=== PATIENT | female | born 1940 | race Caucasian/White ===

== ENCOUNTER 2017-07-19 11:56 | Inpatient (IN) | payer OTHER, MEDICARE, MEDICAID ==
[2017-07-19] VITALS (10 sets, daily range): BP systolic 122–163; BP diastolic 58–82; PULSE 54–66; RESP 17–20; TEMP 98.2–98.7; O2SAT 93–99
[~2017-07-19] VITALS: Ht 157.5 cm; Wt 77.5 kg
--- NOTE | 2017-07-19 12:04 | PD ---
Physical Exam Date Seen by Provider: Jul 19, 2017 Time Seen by Provider: 12:02 Narrative 77 yo female here for chest pain and SOB. History of cardiac. Patient unclear of it however. Feeling nauseous. Pain to the chest on/off. No fevers. No injuries. Vitals are stable in triage. Awaiting bed placement. Data Data Last Documented VS Vital Signs Date Time Temp Pulse Resp B/P (MAP) Pulse Ox O2 Delivery O2 Flow Rate FiO2 07/19/17 11:58 98.7 66 18 122/73 (89) 99 MDM Medical Record Reviewed: Yes Supervised Visit with VICKIE: No Travis June Jul 19, 2017 12:03
--- NOTE | 2017-07-19 12:29 | PD ---
HPI Chief Complaint: Chest Pain Time Seen by Provider: 12:12 Travel History International Travel<30 days: No Contact w/Intl Traveler<30days: No Traveled to known affect area: No History of Present Illness HPI 77-year-old female presents to the emergency department for evaluation of chest pain. Patient states she has been having intermittent chest pain for several months. However, it was slightly worse today. She also reports shortness of breath that is also been ongoing. The patient apparently had a syncopal episode on June. She was seen at [facility] and saw a lending activities supervisor, Dr. Cyr. A cardiac catheterization was performed on Friday, July 14, 2017. Patient states that she was told there was something wrong with a valve, but does not know the official report. She's is on Plavix and also takes a baby aspirin at night. However, she is not sure why she is on the Plavix. She denies any recent single episodes, but does endorse dizziness. She states she will fill if she is going to pass out, but does not pass out. No abdominal pain. No fevers or chills. Patient denies any history of OR or stents. PFSH Past Medical History Hx Anticoagulant Therapy: Yes Cardiovascular Problems: Yes Chemotherapy: Yes (right breast ca) Social History Alcohol Use: No Tobacco Use: No Substance Use: No Allergies-Medications (Allergen,Severity, Reaction): Coded Allergies: No Known Allergies (Unverified , 07/19/17) Reported Meds & Prescriptions Reported Meds & Active Scripts Active Reported Oxycodone-Acetaminophen 5-325 mg Tab 1 Tab PO Q8HR PRN Gabapentin 800 Mg Tab 800 Mg PO TID Aspirin 81 Mg Chew 81 Mg CHEW DAILY Metoprolol Succinate ER 24 HR (Metoprolol Succinate) 50 Mg Tab 50 Mg PO DAILY Sertraline (Sertraline HCl) 50 Mg Tab 50 Mg PO DAILY Levothyroxine (Levothyroxine Sodium) 100 Mcg Tab 100 Mcg PO DAILY Baclofen 10 Mg Tab 10 Mg PO TID Simvastatin 20 Mg Tab 20 Mg PO DAILY Carbidopa-Levodopa 25-100 Mg Tab 1 Tab PO Q8HR Clopidogrel (Clopidogrel Bisulfate) 75 Mg Tab 75 Mg PO DAILY Review of Systems Except as stated in HPI: all other systems reviewed are Neg Physical Exam Narrative GENERAL: Well-nourished, well-developed female patient, ambulatory. Afebrile. SKIN: Focused skin assessment warm/dry. HEAD: Normocephalic. Atraumatic. EYES: No scleral icterus. No injection or drainage. NECK: Supple, trachea midline. No JVD or lymphadenopathy. CARDIOVASCULAR: Regular rate and rhythm without gallops, or rubs. Patient has systolic murmur noted. RESPIRATORY: Breath sounds equal bilaterally. No accessory muscle use. Lungs sounds are clear to auscultation. GASTROINTESTINAL: Abdomen soft, non-tender, nondistended. MUSCULOSKELETAL: No cyanosis, or edema. BACK: Nontender without obvious deformity. No CVA tenderness. Data Data Last Documented VS Vital Signs Date Time Temp Pulse Resp B/P (MAP) Pulse Ox O2 Delivery O2 Flow Rate FiO2 07/19/17 12:06 72 93 Nasal Cannula 2.00 07/19/17 11:58 98.7 18 122/73 (89) Orders Orders Electrocardiogram (07/19/17 12:22) Basic Metabolic Panel (Bmp) (07/19/17 12:22) Ckmb (Isoenzyme) Profile (07/19/17 12:22) Complete Blood Count With Diff (07/19/17 12:22) Magnesium (Mg) (07/19/17 12:22) Prothrombin Time / Inr (Pt) (07/19/17 12:22) Act Partial Throm Time (Ptt) (07/19/17 12:22) Troponin I (07/19/17 12:22) Chest, Single Ap (07/19/17 12:22) Ecg Monitoring (07/19/17 12:22) Iv Access Insert/Monitor (07/19/17 12:22) Oximetry (07/19/17 12:22) Oxygen Administration (07/19/17 12:22) Aspirin Chew (Aspirin Chew) (07/19/17 12:30) MDM Medical Decision Making Medical Screen Exam Complete: Yes Emergency Medical Condition: Yes Medical Record Reviewed: Yes Interpretation(s) Last Impressions Chest X-Ray 07/19/17 1222 Signed Impressions: Service Date/Time: Monday, July 19, 2017 12:33 - CONCLUSION: No acute disease. Cory Dela Cruz MD FACR Differential Diagnosis ACS versus Chest wall pain versus pneumonia versus pneumothorax versus ACS versus chronic chest pain Narrative Course 77-year-old female presents to the emergency department for shortness of breath and chest pain. She does state the symptoms have been ongoing for several months. She was recently seen at [facility] and had a cardiac catheterization done. I will obtain these records. She states that her lending activities supervisor is Dr. Aguilar that he is familiar with her. EKG, CBC, BMP, CK, troponin, magnesium, PTT, PT/INR, chest x-ray ordered and pending. EKG shows sinus rhythm, heart rate 60, no acute ST changes. Patient is given aspirin 162 mg by mouth. CBC shows no acute abnormality. BMP is unremarkable. CK is 40. Troponin is 0.02. Magnesium is 2.1. Coags show no acute abnormality. Chest x-ray shows no acute disease. I was able to obtain the cardiac catheter report from [facility]. This was completed on July 14, 2017. It showed normal left ventricular global systolic function, normal left heart hemodynamics, mild pulmonary hypertension, critical aortic stenosis, no angiographically apparent epicardial disease. I discussed results with the patient. On exam, her heart rate is now bradycardic, going down to 49. She is on metoprolol 50 mg daily. The patient states her lending activities supervisor is now Dr. Aguilar who is familiar with her. I will attempt to contact him for further direction. I talked to Dr. Aguilar who recommends admission. Consult is placed for him. Dr. Flynn, hospitalist, accepted admission. Diagnosis Primary Impression: Aortic stenosis Qualified Codes: I35.0 - Nonrheumatic aortic (valve) stenosis Additional Impression: Chest pain Qualified Codes: R07.9 - Chest pain, unspecified Admitting Information Admitting Physician Requests: Admit Raiza hSah Jul 19, 2017 12:29
[2017-07-19] MEDS ORDERED: ASPIRIN 81 MG CHEW TAB CHEW ONE (12:30)
--- NOTE | 2017-07-19 13:11 | RADRPT ---
EXAM DATE/TIME: 07/19/2017 12:33 [facility] COMPARISON: No previous studies available for comparison. INDICATIONS : Chest pain and short of breath since this morning. MEDICAL HISTORY : None. SURGICAL HISTORY : None. ENCOUNTER: Initial ACUITY: 1 day PAIN SCORE: 2/10 LOCATION: Bilateral chest FINDINGS: A single view of the chest demonstrates the lungs to be symmetrically aerated without evidence of mas s, infiltrate or effusion. The cardiomediastinal contours are unremarkable. Surgical clips right ax illa. Osseous structures are intact. CONCLUSION: No acute disease. Cory Dela Cruz MD FACR on July 19, 2017 at 13:08 Board Certified Radiologist. This report was verified electronically.
[2017-07-19 13:50] LABS: AUTOMATED NEUTROPHIL # 6.1 TH/MM3 (1.8-7.7); BASOPHIL # 0.1 TH/MM3 (0-0.2); BASOPHIL % 0.6 % (0.0-2.0); EOSINOPHIL # 0.1 TH/MM3 (0-0.4); EOSINOPHIL % 1.6 % (0.0-4.0); HEMATOCRIT 34.6 % (35.0-46.0); HEMO FLAGS DIFF FINAL; LYMPH % 19.5 % (9.0-44.0); LYMPHOCYTE # 1.7 TH/MM3 (1.0-4.8); MEAN CELL VOLUME 88.2 FL (80.0-100.0); MEAN CORPUSCULAR HEMOGLOBIN 29.1 PG (27.0-34.0); MONO % 9.2 % (0.0-8.0); NEUT % 69.1 % (16.0-70.0); PLATELET COUNT 271 TH/MM3 (150-450); RED BLOOD COUNT 3.93 MIL/MM3 (4.00-5.30); RED CELL DISTRIBUTION WIDTH 14.4 % (11.6-17.2); WHITE BLOOD COUNT 8.8 TH/MM3 (4.0-11.0)
[2017-07-19 13:54] LABS: APTT (PATIENT) 32.2 SEC (24.3-30.1); PROTHROMBIN TIME - PATIENT 11.4 SEC (9.8-11.6)
[2017-07-19 13:58] LABS: BICARBONATE 29.7 MEQ/L (21.0-32.0); MAGNESIUM 2.1 MG/DL (1.5-2.5)
[2017-07-19] MEDS ORDERED: SIMV20TA PO (14:27)
[2017-07-19] MEDS ORDERED: ASPI81CH CHEW (14:27)
[2017-07-19] MEDS ORDERED: SERT-132 PO (14:27)
[2017-07-19] MEDS ORDERED: CARB25TA9 PO (14:27)
[2017-07-19] MEDS ORDERED: CLOP75TA PO (14:27)
[2017-07-19] MEDS ORDERED: OXYC1TAB63 PO (14:27)
[2017-07-19] MEDS ORDERED: BACL10TA PO (14:27)
[2017-07-19] MEDS ORDERED: METO50TA11 PO (14:27)
[2017-07-19] MEDS ORDERED: LEVO100T5 PO (14:27)
[2017-07-19] MEDS ORDERED: GABA800T PO (14:27)
--- NOTE | 2017-07-19 17:27 | RADRPT ---
EXAM DATE/TIME: 07/19/2017 17:06 [facility] COMPARISON: No previous studies available for comparison. INDICATIONS : Chest pain and short of breath. Pre op mitral valve replacement. Evaluate for pneumonia, pneumothorax , or any communicable disease. MEDICAL HISTORY : None. SURGICAL HISTORY : None. ENCOUNTER: Initial ACUITY: 1 day PAIN SCORE: 5/10 LOCATION: Bilateral chest FINDINGS: PA and lateral views of the chest demonstrate the lungs to be symmetrically aerated without evidence of mass, infiltrate or effusion. The cardiomediastinal contours are unremarkable. Surgical clips ri ght axilla. Degenerative changes right shoulder. CONCLUSION: Negative for acute disease. Degenerative changes right shoulder. Cory Dela Cruz MD FACR on July 19, 2017 at 17:25 Board Certified Radiologist. This report was verified electronically.
[2017-07-19] MEDS ORDERED: SENNOSIDES 8.6 MG TAB PO PRN (17:30)
[2017-07-19] MEDS ORDERED: LACTULOSE SYRUP 20 GM/30 ML CUP PO PRN (17:30)
[2017-07-19] MEDS ORDERED: BISACODYL 10 MG SUPP RECTAL PRN (17:30)
[2017-07-19] MEDS ORDERED: PROCHLORPERAZINE 25 MG SUPP RECTAL PRN (17:30)
[2017-07-19] MEDS ORDERED: ONDANSETRON HCL 4 MG/2 ML VIAL IVP PRN (17:30)
[2017-07-19] MEDS ORDERED: MORPHINE SULFATE 4 MG/ML INJ IV PRN ×2 (17:30)
[2017-07-19] MEDS ORDERED: MAGNESIUM HYDROXIDE SUSP 30 ML CUP PO PRN (17:30)
[2017-07-19] MEDS ORDERED: ZOLPIDEM TARTRATE 5 MG TAB PO PRN (17:30)
[2017-07-19] MEDS ORDERED: SODIUM CHLORIDE 0.9% FLUSH 10 ML FLUSH IV FLUSH PRN (17:30)
[2017-07-19] MEDS ORDERED: NALOXONE HCL 0.4 MG/ML AMP IV PRN (17:30)
[2017-07-19] MEDS ORDERED: ACETAMINOPHEN 325 MG TAB PO PRN ×2 (17:30)
[2017-07-19 17:37] LABS: BACTERIA, URINE FEW /hpf; BLOOD, URINE NEG (NEG); GLUCOSE,URINE NEG (NEG); KETONE, URINE NEG (NEG); MUCUS URINE FEW /lpf (OCC); NITRITE,URINE NEG (NEG); PH, URINE 5.5 (5.0-8.5); SQUAMOUS EPITHELIAL CELL URINE <1 /hpf (0-5); URINE COLOR YELLOW (YELLW/STRAW)
[2017-07-19 17:38] LABS: COMMENT (UR) CULTURE INDICATED; CULTURE IF INDICATED CULTURE INDICATED
--- NOTE | 2017-07-19 18:01 | RADRPT ---
EXAM DATE/TIME: 07/19/2017 17:08 [facility] COMPARISON: No previous studies available for comparison. INDICATIONS : Pre procedure TAVR. MEDICAL HISTORY : Hypercholesterolemia. Hypertension. Hypothyroidism. Cardiac disorders. Anticoagulant therapy. Chemoth erapy. Right breast cancer. SURGICAL HISTORY : Appendectomy. Right lumpectomy. ENCOUNTER: Initial ACUITY: 1 day PAIN SCORE: 0/10 LOCATION: Bilateral neck PEAK SYSTOLIC VELOCITIES (cm/sec): ICA/CCA RATIO: Right: 1.3 Left: 2.0 ICA: Right: 112.1 Left: 137.7 CCA: Right: 83.8 Left: 70.0 ECA: Right: 82.5 Left: 86.8 VERTEBRAL: Right: 49.1 antegrade Left: 42.7 antegrade Elevated flow velocities and ICA/CCA ratios have been found to correlate with increased degrees of vessel stenosis, calculated as percentage of diameter relative to a normal segment of distal ICA/CCA FINDINGS: RIGHT CAROTID: No significant stenosis is visualized. The waveforms are within normal limits. LEFT CAROTID: There is mild elevation of ratios with normal velocity in the left common carotid. VERTEBRAL ARTERIES: Antegrade flow is seen in both vertebral arteries. MISCELLANEOUS: None. CONCLUSION: Mildly elevated ratio on the left. Velocity is normal. Further evaluation may be of benefit. Cory Dela Cruz MD FACR on July 19, 2017 at 17:58 Board Certified Radiologist. This report was verified electronically.
[2017-07-19] MEDS: ENOXAPARIN SODIUM 40 MG/0.4 ML SYRINGE SQ SCH (18:44)
[2017-07-19] MEDS: GABAPENTIN 400 MG CAP PO SCH (18:44)
[2017-07-19] MEDS: BACLOFEN 10 MG TAB PO SCH (18:44)
--- NOTE | 2017-07-19 19:16 | MH ---
cc: SANIA GALINDO DATE OF ADMISSION 07/19/[address] Lucian Castillo CONSULTING PHYSICIANS Dr. Aguilar and Dr. Valiente HISTORY OF THE PRESENT ILLNESS The patient came in through the emergency department. The patient is a 77-year-old female here for chest pain, shortness breath. Has a history of cardiac issues. The patient unclear of it, however. She is nauseated. Has had some pain in the chest on and off. No fevers. No injury. The patient had chest pain. The patient is a 77-year-old female presented to the emergency department for evaluation of chest pain. States that she has been having intermittent chest pain for several months, however, it was worse today. She also reports shortness of breath that has been ongoing. The patient apparently had a syncopal episode on June, seen at [facility]. Saw a asset recovery specialist Dr. Cyr, cardiac catheterization was performed on Friday July 14, 2017. States she was told that there is something wrong with the valve, does not know the official report. She is on Plavix and also takes baby aspirin at night, not sure why she is on the Plavix. She denies any recent episodes. Has some dizziness. She feels that she is going to pass out but does not pass out. Denies any abdominal pain, fever or chills. The patient denies any history of AL or stents. The patient is known to have aortic stenosis from the cardiac catheterization. That was reviewed. PAST MEDICAL HISTORY Includes: 1. Chronic anticoagulation issues. 2. History of cardiovascular problems. 3. History of right breast cancer. 4. Has a history of cardiac disorders. 5. History of chronic anticoagulation with aspirin and Plavix. 6. History of hypercholesterolemia. 7. History of hypertension. 8. History of appendectomy. 9. History of hypothyroidism. 10. History of tobacco abuse still smoking. 11. History of chemotherapy on the right breast. 12. History of lumpectomy. 13. The patient's home medications include Baclofen. Has chronic pain and fibromyalgia. 14. Also has hypertension. 15. And hyperlipidemia. 16. History of depression. 17. And chronic pain syndrome. 18. As well as fibromyalgia. 19. What sounds like Parkinson's disease. 20. Hypothyroidism. MEDICATIONS The patient's home medications include: 21. Baclofen 10 mg t.i.d. 22. Plavix 75 mg daily. 23. Simvastatin 20 mg daily. 24. Metoprolol succinate 50 mg daily. 25. Aspirin 81 mg daily. 26. Oxycodone / Acetaminophen and 5/325 one p.o. q.8h p.r.n. pain. 27. Gabapentin 800 mg p.o. t.i.d. 28. Sertraline 50 mg p.o. daily. 29. Carbidopa-levodopa 25/100 p.o. q.8 h. 30. Levothyroxine 100 mcg one p.o. daily. SOCIAL HISTORY Smokes about half a pack per day. Denies any substance abuse or illicits. ALLERGIES NO KNOWN DRUG ALLERGIES. REVIEW OF SYSTEMS Has had some nausea and vomiting. Denies any fevers or chills or dysuria, urgency, frequency, hematuria, hematemesis, hematochezia. Denies any seizures or strokes. Denies any chest pain or palpitations. Has hypothyroidism. Has chest pain and palpitations. Has recently had a cardiac catheterization which showed aortic stenosis. Aortic issues. Does not fit sepsis. On review of systems has had fatigue. Denies any fever or weight gain or weight loss. Denies any chills. Has had some dizziness. Denies any change in her appetite. Denies any abnormal menstrual pattern. Denies any heat or cold intolerance. Denies any polydipsia, polyuria, polyphagia. Denies any blurred vision or diplopia or eye inflammation or eye pain or visual loss or photosensitivity. Denies any tinnitus or hearing loss. Denies any vertigo. Denies any nasal discharge. No oral lesions or throat pain or hoarseness or ear pain. No runny nose or . Denies any cough or snoring or wheezing. Has had some shortness of breath. Denies any hemoptysis, sputum production but still smoking. Has had the chest pain. Denies any palpitation. Has had near-syncopal type episodes. Has had some question dyspnea on exertion and paroxysmal nocturnal dyspnea. Denies any edema. Denies any abdominal pain or black, bloody stools or constipation, diarrhea. Has had some nausea and some vomiting but none recently. Denies any abnormal vaginal bleeding, dysmenorrhea, dyspareunia, sexual dysfunction. Has had joint pain and chronic pain. Has chronic muscle aches and stiffness and joint swelling and back pain. Denies any abnormal pigmentation, pruritus or rash. Denies any bruising, lymphedema. Denies any eczema or urticaria. Denies any abnormal gait, headaches or localized weakness or paresthesias. Has some anxiety. And some depression. ALLERGIES No KNOWN DRUG ALLERGIES. MEDICATIONS Home medications were as stated. FAMILY HISTORY Includes tobacco abuse. Has had as stated the cardiac disorder with aortic stenosis. History of anticoagulation therapy on aspirin and Plavix. History of hypercholesterolemia on a statin. Hypertension on metoprolol. History of appendectomy. History of hypothyroidism on Synthroid. History of tobacco abuse. Recommend smoking cessation. History of chemotherapy for right breast cancer. History of lumpectomy. PHYSICAL EXAMINATION GENERAL: On physical exam she is awake, alert and oriented, talkative and cooperative. VITAL SIGNS: Her temperature is 98.3, pulse is 60, respirations 18, blood pressure 134/58, O2 sat is 98% on 2 liters. HEENT: Her head is normocephalic, atraumatic. Pupils equal, round, reactive to light and accommodation. Extraocular muscles intact. Mucosa moist. Oropharynx is clear. Tongue is midline. NECK: There is no JVD, no thyromegaly. No carotid bruits. CARDIOVASCULAR: Heart is regular rate and rhythm. There is an S1-S2. No S3 or S4. There is a 3/6 systolic ejection murmur. LUNGS: Essentially clear to auscultation bilaterally. No rhonchi, wheezes or rales. ABDOMEN: Soft, nontender, nondistended. Positive bowel sounds. No rebound, rigidity. EXTREMITIES: No clubbing or cyanosis or edema. Good pedal pulses bilaterally. Deep tendon reflexes 2-4 upper and lower extremities bilaterally. Cranial nerves II-XII are grossly intact. SKIN: Warm and dry. No obvious rashes. NEUROLOGIC: Motor and sensory grossly within normal limits. Motor strength is 5/5 in upper and lower extremities bilaterally. Normal speech. Has fibromyalgia and chronic pain. PSYCHIATRIC: Insight and judgment is good. Mood and behavior is appropriate. LABORATORY DATA Includes the following. Had a white blood cell of 8.8, hemoglobin is 11.4, hematocrit 34.6, platelet count is 271. Coagulation had a PT of 11.4, INR is 1.0, PTT is 32.2. Her sodium is 141, potassium is 4.0, chloride is 104, carbon dioxide 29.7, anion gap 7, BUN is 10, creatinine 0.75, estimated GFR is 75, random glucose 86, calcium was 8.6, magnesium 2.1. Total creatinine kinase is 48. Troponin 0.02. Albumin is 3.1. Her EKG shows sinus rhythm, left ventricular hypertrophy and ST-T wave changes. Abnormal EKG at 60 beats per minute. IMAGING The patient has had imaging done which showed a chest x-ray negative for acute disease, degenerative changes right shoulder. Had the repeat chest x-ray which showed no acute disease. Has been seen by myself as well as by the emergency room physician. Had a cardiac catheterization report from [facility]. Showed normal left ventricular global systolic function. Normal left heart hemodynamics. Mild pulmonary hypertension. Critical aortic stenosis. No angiographically apparent epicardial disease. Croze Machine Operator is now Dr. Aguilar. Dr. Aguilar wanted the patient admitted. Regarding the aortic stenosis. And possible need for a TAVR. Chest pain. The patient also has the history of the Parkinson's disease. Chronic pain and fibromyalgia. Hyperlipidemia. Hypertension. With some mild bradycardia due to metoprolol. Chronic anticoagulation with aspirin and Plavix. Chronic pain on oxycodone and acetaminophen. Gabapentin for neuropathy and fibromyalgia. Sertraline for anxiety, depression. Carbidopa-levodopa for Parkinson's. Levothyroxine for hypothyroidism. The patient will be followed. Will undergo workup regarding need for TAVR versus a full aortic valve repair. Dr. Valiente has been consulted as well as Dr. Aguilar. The patient will continue on heparin subcu t.i.d. Continue SCDs and NACHO hose. Is a full code. Will be here at least 3 days in the hospital and maybe longer, is here as a full admission. And will be followed throughout the admission. Orders have been placed. She will be admitted. Cardiology has been consulted. We will consult case management. And cardiology and cardiothoracic surgery. Continue on heart healthy diet. Continue on oxygen. Get a CBC, CMP, TSH, free T4, hemoglobin A1c, mag and phos. MRSA PCR surveillance. Continue on troponins and cardiac enzymes. Get a urinalysis with culture and sensitivity. Continue on her home medications. Morphine as needed. Continue on Lovenox 40 mg subcu daily instead of heparin. Continue on the urine culture. Activity as tolerated. NACHO hose and SCDs. A CTA of the transaortic valve will be done and ultrasound of carotids have been ordered. OT and physical therapy and occupational therapy with a full code. We will consult case management. Continue on oxygen and PFTs have been ordered. The patient will be followed throughout the admission for any other issues that may arise. A.m. labs will be followed. For any other information please see the chart. DO CHRISTIANO Fuentes/KK /5:28 PM /6:28 PM
[2017-07-19] MEDS ORDERED: IOHEXOL 350 MG/ML 10 ML VIAL (for RAD DIAG) IVCONTRAST ONE (20:54)
[2017-07-19] MEDS: SODIUM CHLORIDE 0.9% FLUSH 10 ML FLUSH IV FLUSH SCH (21:00)
[2017-07-19] MEDS: CARBIDOPA/LEVODOPA 25 MG/100 MG TAB PO SCH (22:20)
[2017-07-19] MEDS: DOCUSATE SODIUM 50 MG/SENNA 8.6 MG TAB PO SCH (22:20)
[2017-07-20] VITALS (25 sets, daily range): BP systolic 111–160; BP diastolic 54–84; PULSE 44–66; RESP 16–20; TEMP 97.3–98.5; O2SAT 92–96
[2017-07-20 00:30] LABS: ANION GAP 7 MEQ/L (5-15); AST (GOT) 13 U/L (15-37); BICARBONATE 29.9 MEQ/L (21.0-32.0); BLOOD UREA NITROGEN 10 MG/DL (7-18); CHLORIDE 103 MEQ/L (98-107); GLOMERULAR FILTRATION RATE 81 ML/MIN (>89); MAGNESIUM 1.9 MG/DL (1.5-2.5); POTASSIUM 3.8 MEQ/L (3.5-5.1); SODIUM (NA) 140 MEQ/L (136-145)
[2017-07-20 00:40] LABS: ALKALINE PHOSPHATASE 67 U/L (45-117); ALT (GPT) 9 U/L (10-53); CREATINE KINASE 47 U/L (26-192); FREE T4 1.09 NG/DL (0.76-1.46); TOTAL BILIRUBIN ADULT 0.5 MG/DL (0.2-1.0)
[2017-07-20] MEDS: LEVOTHYROXINE SODIUM 100 MCG TAB PO SCH (05:30)
[2017-07-20] MEDS: CARBIDOPA/LEVODOPA 25 MG/100 MG TAB PO SCH ×3 (05:30→22:14)
[2017-07-20 07:11] LABS: AUTOMATED NEUTROPHIL # 4.3 TH/MM3 (1.8-7.7); BASOPHIL # 0.1 TH/MM3 (0-0.2); BASOPHIL % 0.8 % (0.0-2.0); EOSINOPHIL # 0.2 TH/MM3 (0-0.4); EOSINOPHIL % 2.9 % (0.0-4.0); HEMATOCRIT 36.3 % (35.0-46.0); HEMO FLAGS DIFF FINAL; LYMPH % 25.5 % (9.0-44.0); LYMPHOCYTE # 1.8 TH/MM3 (1.0-4.8); MEAN CELL VOLUME 87.3 FL (80.0-100.0); MEAN CORPUSCULAR HEMOGLOBIN 29.2 PG (27.0-34.0); MEAN CORPUSCULAR HGB CONC 33.4 % (32.0-36.0); MONO % 9.8 % (0.0-8.0); PLATELET COUNT 278 TH/MM3 (150-450); RED BLOOD COUNT 4.16 MIL/MM3 (4.00-5.30); RED CELL DISTRIBUTION WIDTH 14.6 % (11.6-17.2); WHITE BLOOD COUNT 7.1 TH/MM3 (4.0-11.0)
--- NOTE | 2017-07-20 07:58 | RADRPT ---
EXAM DATE/TIME: 07/19/2017 18:26 [facility] COMPARISON: No previous studies available for comparison. INDICATIONS : Post operative, TAVR or AVR. IV CONTRAST: 100 cc Omnipaque 350 (iohexol) IV RADIATION DOSE: 11.88 CTDIvol (mGy) MEDICAL HISTORY : Carcinoma, breast. Hypertension. SURGICAL HISTORY : Appendectomy. Lumpectomy. ENCOUNTER: Initial ACUITY: 1 day PAIN SCALE: 2/10 LOCATION: Bilateral chest TECHNIQUE: Volumetric scanning was performed using a multi-row detector CT scanner. The data was post processed with a variety of visualization algorithms including full volume maximum intensity projection, multi -planar sliding thin slab reformation, curved planar reformation, and surface rendering techniques. Using automated exposure control and adjustment of the mA and/or kV according to patient size, radiat ion dose was kept as low as reasonably achievable to obtain optimal diagnostic quality images. DIC OM format image data is available electronically for review and comparison. FINDINGS: CARDIAC: The coronary system is right dominant. Scattered coronary artery atherosclerotic calcifications obse rved. There is no pericardial effusion AORTIC ROOT/VALVE: 3 cusps are evident with prominent calcifications. The sinus of Valsalva measures 2.9 cm in diameter in the sinotubular junction 2.1 cm. Mid tubular thoracic aorta measures 2.9 cm with no calcifications. THORACIC AORTA: Origin of the great vessels is normal. No evidence of aneurysm, mural thrombus, dissection, mural ca lcification, or stenosis. ABDOMINAL AORTA: Diffuse calcified and noncalcified atheromatous plaque throughout the abdominal aorta but most abunda nt within the infrarenal aspect. There is an irregular luminal contour. No aneurysmal change or hemod ynamically significant stenosis. Inflow vessels are patent bilaterally. 2 renal arteries supply the r ight kidney. A single supplies the left. These are patent. The celiac, SMA, and JIN are patent. CELIAC ARTERY: Celiac artery is widely patent. SMA: Superior mesenteric artery is widely patent. RIGHT RENAL ARTERY: 2 renal arteries supply the right kidney. These are patent. LEFT RENAL ARTERY: Left renal artery is widely patent. RIGHT COMMON ILIAC: No evidence of aneurysm, mural thrombus, dissection, mural calcification, or stenosis. The common fe moral measures 6 mm. LEFT COMMON ILIAC: No evidence of aneurysm, mural thrombus, dissection, mural calcification, or stenosis. The common fe moral measures 5 mm. THORAX: A 4 mm pulmonary nodule seen within the lateral basilar segment of the right lower lobe. No dominant mass or acute infiltrate. ABDOMEN: The gallbladder is surgically absent. The liver is diffusely low in attenuation. Diffuse colonic dive rticulosis most abundant within the sigmoid. No acute inflammation. PELVIS: Within the right groin there is a 3.0 x 2.3 cm soft tissue structure that lies directly anterior to t he junction of the external iliac artery and common femoral artery. This is essentially at the origin of the inferior epigastric artery. Hounsfield units are 57. It has hazy margination. CONCLUSION: 1. Atherosclerotic disease throughout the aorta generating an irregular luminal contour within the in frarenal extent. No aneurysmal change. 2. Special note is made of a 3.0 x 2.3 cm soft tissue structure anterior to the junction of the exter nal iliac artery and common femoral artery on the right. CT characteristics would suggest a hematoma. This can be followed with ultrasound. 3. Hepatic steatosis. 4. Colonic diverticulosis. 5. 4 mm nodule within the right lower lobe. Current guidelines suggest a repeat CT of the thorax in 1 2 months. Khoi Vidal Jr., MD on July 20, 2017 at 7:44 Board Certified Radiologist. This report was verified electronically.
[2017-07-20] MEDS: oxyCODONE/ACETAMINOPHEN 5 MG/325 MG TAB PO PRN ×2 (08:42→22:14)
[2017-07-20] MEDS: PRAVASTATIN SOD 40 MG TAB PO SCH (08:43)
[2017-07-20] MEDS: GABAPENTIN 400 MG CAP PO SCH ×3 (08:43→17:31)
[2017-07-20] MEDS: CLOPIDOGREL 75 MG TAB PO SCH (08:43)
[2017-07-20] MEDS: BACLOFEN 10 MG TAB PO SCH ×3 (08:45→17:31)
[2017-07-20] MEDS: ASPIRIN 81 MG CHEW TAB CHEW SCH (08:45)
[2017-07-20] MEDS: SODIUM CHLORIDE 0.9% FLUSH 10 ML FLUSH IV FLUSH SCH ×2 (08:46→12:13)
[2017-07-20] MEDS: SERTRALINE HCL 50 MG TAB PO SCH (08:55)
[2017-07-20] MEDS: DOCUSATE SODIUM 50 MG/SENNA 8.6 MG TAB PO SCH ×2 (08:56→21:00)
[2017-07-20] MEDS ORDERED: METOPROLOL SUCCINATE 50 MG EXTENDED RELEASE TAB PO SCH (09:00)
--- NOTE | 2017-07-20 14:51 | PD.CAR.PN ---
CVT Progress Note Subjective/Hospital Course: pt seen and evaluated , sts data discussed with pt risk of mortality 3.208% morbidity mortality 19.953% Objective: Vital Signs Date Time Temp Pulse Resp B/P (MAP) Pulse Ox O2 Delivery O2 Flow Rate FiO2 07/20/17 14:04 54 07/20/17 13:40 16 07/20/17 13:08 56 07/20/17 12:31 58 07/20/17 11:30 56 07/20/17 11:30 98.0 60 16 138/71 (93) 96 07/20/17 10:00 58 07/20/17 09:00 66 07/20/17 08:00 60 07/20/17 07:30 98.5 63 16 156/84 (108) 92 07/20/17 07:00 56 07/20/17 06:05 58 07/20/17 05:05 46 07/20/17 04:23 55 07/20/17 03:39 98.3 56 19 149/78 (101) 94 07/20/17 03:39 47 07/20/17 02:20 55 07/20/17 01:03 60 07/20/17 00:15 62 07/19/17 23:50 98.4 63 18 125/60 (81) 93 07/19/17 23:00 56 07/19/17 22:00 54 07/19/17 21:00 62 07/19/17 20:00 58 07/19/17 19:20 98.2 58 17 163/82 (109) 94 07/19/17 19:15 07/19/17 18:47 62 18 136/63 (87) 95 Room Air Labs: Laboratory Tests Test 07/20/17 06:42 07/20/17 07:00 White Blood Count 7.1 TH/MM3 (4.0-11.0) Red Blood Count 4.16 MIL/MM3 (4.00-5.30) Hemoglobin 12.1 GM/DL (11.6-15.3) Hematocrit 36.3 % (35.0-46.0) Mean Corpuscular Volume 87.3 FL (80.0-100.0) Mean Corpuscular Hemoglobin 29.2 PG (27.0-34.0) Mean Corpuscular Hemoglobin Concent 33.4 % (32.0-36.0) Red Cell Distribution Width 14.6 % (11.6-17.2) Platelet Count 278 TH/MM3 (150-450) Mean Platelet Volume 7.7 FL (7.0-11.0) Neutrophils (%) (Auto) 61.0 % (16.0-70.0) Lymphocytes (%) (Auto) 25.5 % (9.0-44.0) Monocytes (%) (Auto) 9.8 % (0.0-8.0) Eosinophils (%) (Auto) 2.9 % (0.0-4.0) Basophils (%) (Auto) 0.8 % (0.0-2.0) Neutrophils # (Auto) 4.3 TH/MM3 (1.8-7.7) Lymphocytes # (Auto) 1.8 TH/MM3 (1.0-4.8) Monocytes # (Auto) 0.7 TH/MM3 (0-0.9) Eosinophils # (Auto) 0.2 TH/MM3 (0-0.4) Basophils # (Auto) 0.1 TH/MM3 (0-0.2) CBC Comment DIFF FINAL Differential Comment Nasal Screen MRSA (PCR) MRSA NOT DETECTED (NOT Result Diagram: 07/20/17 0642 07/19/17 5900 Shelly Aguillon Jul 20, 2017 14:51
--- NOTE | 2017-07-20 16:24 | ECHRPT ---
Indication: sob CONCLUSIONS Technically difficult study. The left ventricular systolic function is low normal with an estimated ejection fraction in the rang e of 50- 55%. Moderately dilated left ventricle. Wall thickness is measured at the upper limits of normal. Doppler parameters are consistent with impaired left ventricular relaxtion (grade 1 diastolic dysfun ction). Mild mitral valve regurgitation. No mitral valve stenosis. Mild thickening of the aortic valve leaflets. Diffuse calcification of the aortic valve. Mild aortic valve regurgitation. Aortic valve mean gradient is 60 mmHg. Max gradient is 97mmhg Aortic valve area is 0.51 cm. There is mild tricuspid valve regurgitation. The estimated pulmonary arterial pressure is _25_ mmHg. The pulmonary valve is not well visualized. BP: / HR: Rhythm: MEASUREMENTS (Male / Female) Normal Values Technical Quality:Technically difficult study 2D ECHO LV Diastolic Diameter PLAX 4.5 cm 4.2 - 5.9 / 3.9 - 5.3 cm LV Systolic Diameter PLAX 3.6 cm IVS Diastolic Thickness 1.7 cm 0.6 - 1.0 / 0.6 - 0.9 cm LVPW Diastolic Thickness 1.1 cm 0.6 - 1.0 / 0.6 - 0.9 cm LV Relative Wall Thickness 0.6 RV Internal Dim ED PLAX 3.0 cm LVOT Diameter 2.3 cm M-MODE Aortic Root Diameter MM 3.6 cm LA Systolic Diameter MM 3.8 cm LA Ao Ratio MM 1.1 DOPPLER AV Peak Velocity 491.5 cm/s AV Peak Gradient 96.6 mmHg AV Mean Gradient 60.0 mmHg AV Velocity Time Integral 128.5 cm LVOT Peak Velocity 54.9 cm/s LVOT Peak Gradient 1.2 mmHg LVOT Velocity Time Integral 15.9 cm AV Area Cont Eq vti 0.5 cm AV Area Cont Eq pk 0.5 cm Mitral E Point Velocity 56.3 cm/s Mitral A Point Velocity 70.1 cm/s Mitral E to A Ratio 0.8 LV E' Lateral Velocity 7.5 cm/s Mitral E to LV E' Lateral Ratio 7.5 LV E' Septal Velocity 8.3 cm/s Mitral E to LV E' Septal Ratio 6.8 TR Peak Velocity 250.0 cm/s TR Peak Gradient 25.0 mmHg FINDINGS LEFT VENTRICLE The left ventricular systolic function is low normal with an estimated ejection fraction in the rang e of 50- 55%. Moderately dilated left ventricle. Wall thickness is measured at the upper limits of normal. Doppler parameters are consistent with impaired left ventricular relaxtion (grade 1 diastolic dysfun ction). RIGHT VENTRICLE Normal right ventricular size and systolic function. LEFT ATRIUM The left atrial size is normal. RIGHT ATRIUM The right atrial size is normal. ATRIAL SEPTUM Normal atrial septal thickness without atrial level shunting by limited color doppler interrogation. AORTA The aortic root and proximal ascending aorta are normal in size on limited imaging. MITRAL VALVE Structurally normal mitral valve. Mild mitral valve regurgitation. No mitral valve stenosis. AORTIC VALVE Trileaflet aortic valve. Mild thickening of the aortic valve leaflets. Diffuse calcification of the aortic valve. Mild aortic valve regurgitation. Aortic valve mean gradient is 60 mmHg. Max gradient is 97mmhg Aortic valve area is 0.51 cm. TRICUSPID VALVE Structurally normal tricuspid valve. There is mild tricuspid valve regurgitation. The estimated pulmonary arterial pressure is _25_ mmHg. PULMONARY VALVE The pulmonary valve is not well visualized. VESSELS The inferior vena cava is normal in size. PERICARDIUM No pericardial effusion. Leandro Dillon MD, FACC (Electronically Signed) Final Date:20 July 2017 16:24 Amended: 20 July 2017 18:02
[2017-07-20 16:48] LABS: HEMOGLOBIN A1a 0.9 %; HEMOGLOBIN A1b 1.1 %; HEMOGLOBIN F 0.9 %; HEMOGLOBIN LA1C 1.5 %; HEMOGLOBIN P3 3.5 %
[2017-07-20] MEDS: ENOXAPARIN SODIUM 40 MG/0.4 ML SYRINGE SQ SCH (17:30)
--- NOTE | 2017-07-20 17:36 | EKG ---
Date Performed: 07/19/2017 Time Performed: 12:15:19 PTAGE: 77 years EKG: Sinus rhythm LEFT VENTRICULAR HYPERTROPHY AND ST-T CHANGE ABNORMAL ECG NO PREVIOUS TRACING DOCTOR: Geovany Zarco Interpretating Date/Time 07/20/2017 17:33:55
--- NOTE | 2017-07-20 18:04 | HHI.PR ---
Subjective Remarks Deferred entry - patient seen at 7 pm Patient states sob is improving denies cp vital signs stable good oxygen saturation Objective Vitals Vital Signs Date Time Temp Pulse Resp B/P (MAP) Pulse Ox O2 Delivery O2 Flow Rate FiO2 07/20/17 18:01 53 07/20/17 17:23 55 07/20/17 16:34 46 07/20/17 15:35 55 07/20/17 15:35 97.3 55 16 111/54 (73) 96 07/20/17 14:04 54 07/20/17 13:40 16 07/20/17 13:08 56 07/20/17 12:31 58 07/20/17 11:30 56 07/20/17 11:30 98.0 60 16 138/71 (93) 96 07/20/17 10:00 58 07/20/17 09:00 66 07/20/17 08:00 60 07/20/17 07:30 98.5 63 16 156/84 (108) 92 07/20/17 07:00 56 07/20/17 06:05 58 07/20/17 05:05 46 07/20/17 04:23 55 07/20/17 03:39 98.3 56 19 149/78 (101) 94 07/20/17 03:39 47 07/20/17 02:20 55 07/20/17 01:03 60 07/20/17 00:15 62 07/19/17 23:50 98.4 63 18 125/60 (81) 93 07/19/17 23:00 56 07/19/17 22:00 54 07/19/17 21:00 62 07/19/17 20:00 58 07/19/17 19:20 98.2 58 17 163/82 (109) 94 07/19/17 19:15 07/19/17 18:47 62 18 136/63 (87) 95 Room Air I/O 07/19/17 07/19/17 07/19/17 07/20/17 07/20/17 07/20/17 06:59 14:59 22:59 06:59 14:59 22:59 Intake Total 480 ml 450 ml Output Total 625 ml 700 ml Balance -145 ml -250 ml Intake Oral 480 ml 450 ml Output Urine Total 625 ml 700 ml # Voids 1 # Bowel Movements 1 Result Diagram: 07/20/17 0642 07/19/17 2300 Imaging Last Impressions Chest X-Ray 07/19/17 1222 Signed Impressions: Service Date/Time: Wednesday, July 19, 2017 12:33 - CONCLUSION: No acute disease. Cory Dela Cruz MD FACR Chest CTA 07/19/17 0000 Signed Impressions: Service Date/Time: Wednesday, July 19, 2017 18:26 - CONCLUSION: 1. Atherosclerotic disease throughout the aorta generating an irregular luminal contour within the infrarenal extent. No aneurysmal change. 2. Special note is made of a 3.0 x 2.3 cm soft tissue structure anterior to the junction of the external iliac artery and common femoral artery on the right. CT characteristics would suggest a hematoma. This can be followed with ultrasound. 3. Hepatic steatosis. 4. Colonic diverticulosis. 5. 4 mm nodule within the right lower lobe. Current guidelines suggest a repeat CT of the thorax in 12 months. Khoi Vidal Jr., MD Carotid Artery Ultrasound 07/19/17 0000 Signed Impressions: Service Date/Time: Wednesday, July 19, 2017 17:08 - CONCLUSION: Mildly elevated ratio on the left. Velocity is normal. Further evaluation may be of benefit. Cory Dela Cruz MD FACR Objective Remarks AAOx3 NAD Bilateral crackles on both lung bases on auscultation Holosystolic murmur best on the 2ng right intercostal space radiating to the neck no edema in lower extremities Medications and IVs Current Medications Medications (Trade) Dose Ordered Sig/Nazario Route Start Time Stop Time Status Last Admin (Aspirin Chew) 81 mg DAILY CHEW 07/20/17 09:00 07/20/17 08:45 (Lioresal) 10 mg TID PO 07/19/17 18:00 07/20/17 17:31 (Sinemet 25-100 Mg) 1 tab Q8HR PO 07/19/17 22:00 07/20/17 13:41 (Plavix) 75 mg DAILY PO 07/20/17 09:00 07/20/17 08:43 (Neurontin) 800 mg TID PO 07/19/17 18:00 07/20/17 17:31 (Synthroid) 100 mcg DAILY@0600 PO 07/20/17 06:00 07/20/17 05:30 (Percocet 5-325 Mg) 1 tab Q8H PRN PO 07/19/17 17:30 07/20/17 08:42 (Zoloft) 50 mg DAILY PO 07/20/17 09:00 07/20/17 08:55 (Pravachol) 40 mg DAILY PO 07/20/17 09:00 07/20/17 08:43 (NS Flush) 2 ml UNSCH PRN IV FLUSH 07/19/17 17:30 (NS Flush) 2 ml BID IV FLUSH 07/19/17 21:00 07/20/17 12:13 (Tylenol) 650 mg Q4H PRN PO 07/19/17 17:30 (Zofran Inj) 4 mg Q6H PRN IVP 07/19/17 17:30 (Compazine Supp) 25 mg Q12H PRN RECTAL 07/19/17 17:30 (Ambien) 5 mg HS PRN PO 07/19/17 17:30 (Lovenox Inj) 40 mg Q24H SQ 07/19/17 18:00 07/20/17 17:30 (Tylenol) 650 mg Q6H PRN PO 07/19/17 17:30 (Morphine Inj) 2 mg Q3H PRN IV 07/19/17 17:30 07/20/17 12:13 (Morphine Inj) 4 mg Q3H PRN IV 07/19/17 17:30 (Narcan Inj) 0.4 mg UNSCH PRN IV 07/19/17 17:30 (Brittany-Colace) 1 tab BID PO 07/19/17 21:00 07/19/17 22:20 (Milk Of Magnesia Liq) 30 ml Q12H PRN PO 07/19/17 17:30 (Senokot) 17.2 mg Q12H PRN PO 07/19/17 17:30 (Dulcolax Supp) 10 mg DAILY PRN RECTAL 07/19/17 17:30 (Lactulose Liq) 30 ml DAILY PRN PO 07/19/17 17:30 (Toprol Xl) 25 mg DAILY PO 07/21/17 09:00 A/P Problem List: (1) Critical aortic valve stenosis ICD Code: I35.0 - Nonrheumatic aortic (valve) stenosis Status: Acute Plan: Patient hemodynamically stable at this moment. Echo as described above confirms severe aortic stenosis and normal ef with grade [address] Cardiology and CT surgery consulted. Patient to get evaluated by Ct surgery for TAVR vs AVR (2) Chest pain ICD Code: R07.9 - Chest pain, unspecified Status: Acute Plan: Chest pain likely due to demand ischemia due to severe aortic stenosis. Cardiac enzymes negative x 3. EKG reviewed by me showed extensive ST - T changes due to myocardial ischemia but no ST elevation. Continue ASA and Plavix for now. (3) Acute on chronic diastolic heart failure ICD Code: I50.33 - Acute on chronic diastolic (congestive) heart failure Status: Acute Plan: Mild crackles on exam. Avoid overdiuresis unless necessary due to dependence on preload. Also avoid nitrates if chest pain. (4) HTN (hypertension) ICD Code: I10 - Essential (primary) hypertension Status: Chronic Plan: Seems to be stable. Agree with discontinuation of beta kaushik due to bradycardia. (5) Hyperlipidemia ICD Code: E78.5 - Hyperlipidemia, unspecified Plan: Continue statin therapy. (6) Fibromyalgia ICD Code: M79.7 - Fibromyalgia Status: Chronic Plan: Seems stable. Continue gabapentin and Baclofen. (7) Chronic pain syndrome ICD Code: G89.4 - Chronic pain syndrome Status: Chronic Plan: Seems to be stable. Continue Tylenol and Percocet for pain. (8) Neuropathy ICD Code: G62.9 - Polyneuropathy, unspecified Plan: Stable, continue gabapentin. (9) Hypothyroidism ICD Code: E03.9 - Hypothyroidism, unspecified Status: Chronic Plan: On Levothyroxine. Continue. tSH and free t4 normal. (10) Depression ICD Code: F32.9 - Major depressive disorder, single episode, unspecified Status: Chronic Plan: Continue Zoloft. Stable. (11) Parkinsons disease ICD Code: G20 - Parkinson's disease Plan: Seems to be stable. Continue Carbidopa levodopa. Assessment and Plan DVT Prophylaxis: on SCD's, started on Lovenox however will DC given that patient is on ASA and Plavix. Problem Qualifiers (1) Chest pain: Qualified Codes: R07.9 - Chest pain, unspecified (2) HTN (hypertension): Qualified Codes: I10 - Essential (primary) hypertension (3) Hyperlipidemia: Qualified Codes: E78.5 - Hyperlipidemia, unspecified (4) Hypothyroidism: Qualified Codes: E03.9 - Hypothyroidism, unspecified Krystian Cruz MD Jul 20, 2017 18:04
--- NOTE | 2017-07-20 18:28 | MB ---
cc: ZAN MCGINNIS MD DATE OF CONSULTATION 07/20/17 1940. REASON FOR CONSULTATION Severe symptomatic aortic stenosis. HISTORY OF PRESENT ILLNESS 77-year-old female that presented to the emergency department with complaints of shortness of breath. She has been recently diagnosed with severe aortic stenosis. The patient was admitted to [facility] in [place] with symptoms of syncope and shortness of breath. 2-D echocardiogram that revealed severe aortic stenosis with a calculated mean gradient across the aortic valve of 80 mmHg, a calculated valve area of 0.4 and a preserved ejection fraction with an EF of 50-55%. Subsequently, the patient had a coronary angiogram that revealed normal coronaries. The patient was discharged after stabilization of heart failure to follow with cardiology. This time around the patient reports having continued symptoms of shortness of breath acute on chronic HF, no syncope. Cardiology consulted for further management and evaluation. REVIEW OF SYSTEMS Review of systems negative except for what is mentioned in HPI. PAST MEDICAL HISTORY 1. History of breast cancer, 2. Hypercholesterolemia, 3. Hypertension, 4. Appendectomy, 5. Hypothyroidism, 6. Depression 7. Fibromyalgia, 8. Parkinson's disease MEDICATIONS Home medications 1. Baclofen 10 mg p.o. t.i.d. 2. Plavix 75 mg p.o. daily. 3. Simvastatin 20 mg p.o. daily. 4. Metoprolol 50 mg p.o. daily. 5. Aspirin 81 mg p.o. daily. 6. Gabapentin 800 mg p.o. t.i.d. 7. Sertraline 50 mg p.o. daily. 8. Carbidopa-levodopa 25/100 p.o. q.8 h 9. Levothyroxine 100 mg p.o. daily. SOCIAL HISTORY She is a current smoker. Denies substance abuse or alcohol abuse. ALLERGIES NO KNOWN DRUG ALLERGIES. FAMILY HISTORY Noncontributory PHYSICAL EXAMINATION VITAL SIGNS: Temperature 98, respiratory rate 16, blood pressure 138/71, O2 sat 96% room air. GENERAL: Awake, alert, oriented x3 in no acute distress. NECK: No JVD, no carotid bruits. HEART: Irregular rate and rhythm. She has a 3/6 systolic ejection murmur best heard in aortic focus. LUNGS: Clear to auscultation bilaterally. No wheezes, rhonchi or rales. ABDOMEN: Soft, nontender, nondistended. EXTREMITIES: Mild edema in the lower extremities. LABORATORY DATA CBC - hemoglobin 12, hematocrit 36, platelet count 278, INR one. Chemistries - sodium 140, potassium 3.8, BUN 10, creatinine 0.7. Troponin less than 0.02 x3, INR one. CARDIOLOGY STUDIES EKG sinus bradycardia. ASSESSMENT/PLAN 77-year-old female lady that presents with acute on chronic diastolic heart failure in the setting of known severe aortic stenosis. Normal coronaries in recent LHC. She remains afebrile and hemodynamically stable. The patient STS score for open heart surgery is around 2.8-3%. She is 4/4 frail. Given the patient's frailty, I will recommend evaluation for TAVR vs AVR. After work-up she will be discuss in Valve conference to determined eligibility. Options have been discuss with the patient, PowerPoint Education Presentation given. Patient understand options and will like to proceed with work up. Recommendation: - TAVR CTA - PFTs. - Cardiothoracic surgery consult. - IV diuresis, - Strict inputs and outputs, - Low sodium diet. - Daily weight - Encourage ambulation Thank you for the opportunity to take part in the care of this patient. Further therapy to be determined. MD IGOR Erazo/SA /1:10 PM /6:15 PM ROSLYN
[2017-07-21] VITALS (26 sets, daily range): BP systolic 125–148; BP diastolic 36–70; PULSE 42–61; RESP 16–18; TEMP 97.5–97.9; O2SAT 91–95
[2017-07-21] MEDS: LEVOTHYROXINE SODIUM 100 MCG TAB PO SCH (05:54)
[2017-07-21] MEDS: CARBIDOPA/LEVODOPA 25 MG/100 MG TAB PO SCH ×3 (05:54→21:28)
--- NOTE | 2017-07-21 08:50 | MB ---
cc: GEM RUBIO MD DATE OF CONSULTATION 07/20/17 DATE OF 1940 HISTORY OF PRESENT ILLNESS A 77-year-old female, patient of Dr. Chelle Castillo in [place], Dr. Saturnino Monreal, Dr. Aguilar who apparently was referred to Dr. Aguilar to be evaluated for possible transcatheter aortic valve replacement. The patient apparently has had complaint of some episodes of mild mid sternal chest discomfort off and on for the past 4 or 5 months occurring a couple times a week. Scale 4/5, associated with some shortness of breath. Then, a week ago, last , she was with a friend, she was sitting and trying to stand up and she got very dizzy. She sort of slid down, landed on her buttocks. She said she blacked out. She was maybe out for seconds. She had no bowel or bladder incontinence. She said her friend said that her eyes rolled up in her head as their friend called . She has history of heart murmur that she has known for years but she said she had never actually been worked up for the heart murmur. She underwent echocardiogram while she was at [facility] which showed an EF of 50-55%, left atrial size normal, right atrium normal. There was some mild aortic insufficiency, severe aortic stenosis with a mean gradient of 80 mmHg. Aortic valve area calculated at 0.49 cm2. Mild mitral regurgitation, moderate tricuspid regurgitation, some evidence of moderate pulmonary hypertension with an RV systolic pressure of 46 mmHg. There was calcified calcific aortic valve with critical stenosis. She then underwent cardiac cath right and left which showed right atrial pressures of 8, PA pressures of 38/8 with a mean of 22, pulmonary capillary wedge pressure of 24. Cardiac output is 6.4. The valve area was again calculated at 0.6. At that time there showed no evidence of angiographically significant coronary disease. She presented to our emergency room yesterday with chest pain. PAST MEDICAL HISTORY Includes chronic anticoagulation issues. She is apparently on Plavix which she does not know why. She has a history of right breast cancer 2005 with right lumpectomy, chemo and radiation. Hyperlipidemia, hypertension, hypothyroidism. Current tobacco abuse, chronic pain and fibromyalgia. History of depression. She takes Sinemet for tremors. She denies having been diagnosed with Parkinson's. She does see a neurologist, Dr. Lopez in [place]. Her surgeries include right lumpectomy. She did have a cardiac cath [address] Mendez in [place] where she said she had some very minimal blockage. Other surgeries include a lap cholecystectomy, appendectomy, tubal ligation, right Achilles tendon repair. ALLERGIES No known allergies. MEDICATIONS Home meds include: 1. Baclofen 10 p.o. t.i.d. 2. Plavix 75 daily. 3. Simvastatin 20 daily. 4. Metoprolol 50 daily. 5. Aspirin 81 daily. 6. She takes Percocet p.r.n. for pain. 7. Gabapentin 800 t.i.d. 8. Sertraline 50 p.o. daily. 9. Sinemet 25/100 p.o. q. 8 hours. 10. Levothyroxine 100 mics p.o. daily. FAMILY HISTORY Noncontributory. SOCIAL HISTORY The patient , has six children. She has been smoking cigarettes for 50 years, one-pack per day. She said she is down to three to four cigarettes per day. No alcohol. She lives alone. She does not drive. She has not been driving for the last 7 years due to vertigo. She uses a walker to ambulate. She does some of her cooking, cleaning at home and some of her grocery shopping as much as she can but due to her chronic pain and muscle stiffness she has difficulty. She does wear full dentures and eyeglasses. REVIEW OF SYSTEMS GENERAL: In general, no night sweats, fever, heat or cold intolerance. SKIN: No psoriasis, itching or hives. HEENT: No blurred vision, hearing loss. RESPIRATORY: Positive for shortness breath. No cough. CARDIOVASCULAR: As above in the HPI. GASTROINTESTINAL: No diarrhea, vomiting. GENITOURINARY: No burning, frequency, urgency. SENIOR HEALTH CONSULTANT: No history of TIA, CVA, seizure disorder. ENDOCRINOLOGY: No history of diabetes, however, she has history of hypothyroidism. PHYSICAL EXAMINATION VITAL SIGNS: On exam blood pressure 138/70, heart rate of 54, temperature max 98, room air sat 96%. GENERAL: Patient is awake, alert. No acute distress. HEENT: Head is normocephalic, atraumatic. Pupils equal and reactive. Oral mucosa pink, moist. NECK: Supple. No JVD. HEART: Heart sounds S1-S2 regular rate and rhythm. Grade 3/6 systolic murmur best noted at the left sternal border. LUNGS: Clear to auscultation. No wheezes, rales or rhonchi. ABDOMEN: Soft, nontender. No masses or organomegaly. EXTREMITIES: Reveal no cyanosis, clubbing or edema. NEUROLOGICALLY: She is A&O x4. Motor strength 5/5 upper and lower extremities. Speech normal. No focal deficits. LABORATORY FINDINGS Shows hemoglobin 12, hematocrit 36, white cell count 7.1, platelet count 278, sodium 140, potassium 3.8, BUN 10, creatinine 0.70. Troponin 0.03. TSH of 1.10. INR 1.0. Urinalysis shows large leuko esterase, few bacteria. MRSA non-detected. Micro, urine culture pending. IMAGING STUDIES Chest x-ray unremarkable. She does have some surgical ___ in the right axilla. Carotid ultrasound some mildly elevated ratio on the left with a ratio 2.0 on the left. TAVR CTA shows some atherosclerotic disease throughout the aorta. No aneurysmal change. There is a 3 x 2.3 cm soft tissue structure anterior to the junction of the external iliac artery and the common femoral artery on the right suggesting a possible hematoma. Her cath was done on the 14 of July which they use a right femoral artery and venous approach. Also there is a 4 mm nodule within the right lower lobe suggesting repeat CT scan in 12 months. EKG shows sinus rhythm with some nonspecific ST changes in the lateral leads. IMPRESSION This is again a 77-year-old female with recent acute syncopal episode, also chest pain, some systolic dysfunction, EF of 50%, underwent heart catheterization showing nonobstructive coronary disease, however, her echo prior to that and the cath did show evidence for severe aortic stenosis with a valve area calculated 0.49 cm square, moderate pulmonary hypertension. The patient has been evaluated for transcatheter valve replacement. Her other comorbidities include pulmonary dysfunction, FEV-1 of 1.8, continued tobacco abuse, hypertension, some lack of independence in her activities of daily living. Her frailty score is 4/4, albumin level 3.0. STS risk score of 3.28, morbidity mortality 19%. RECOMMENDATIONS The patient would be a better candidate for transcatheter aortic valve replacement secondary to her frailty score, her comorbidities as described as above. The patient will also be evaluated by Dr. Nat Alexis for qualifications for possible TAVR candidate. Dictated by: CHATA Santana Gem JIMENEZ /2:23 PM /8:44 AM
[2017-07-21] MEDS: BACLOFEN 10 MG TAB PO SCH ×3 (08:59→18:01)
[2017-07-21] MEDS: ASPIRIN 81 MG CHEW TAB CHEW SCH (08:59)
[2017-07-21] MEDS: METOPROLOL SUCCINATE 50 MG EXTENDED RELEASE TAB PO SCH (08:59)
[2017-07-21] MEDS: GABAPENTIN 400 MG CAP PO SCH ×3 (08:59→18:01)
[2017-07-21] MEDS: CLOPIDOGREL 75 MG TAB PO SCH (08:59)
[2017-07-21] MEDS: SERTRALINE HCL 50 MG TAB PO SCH (09:00)
[2017-07-21] MEDS: oxyCODONE/ACETAMINOPHEN 5 MG/325 MG TAB PO PRN ×2 (09:00→18:08)
[2017-07-21] MEDS: PRAVASTATIN SOD 40 MG TAB PO SCH (09:00)
[2017-07-21] MEDS: DOCUSATE SODIUM 50 MG/SENNA 8.6 MG TAB PO SCH ×2 (09:00→21:00)
[2017-07-21] MEDS: SODIUM CHLORIDE 0.9% FLUSH 10 ML FLUSH IV FLUSH SCH ×2 (09:01→21:28)
--- NOTE | 2017-07-21 09:14 | PD.CARD.PN ---
Subjective Subjective Remarks no overnight events no CV complaints Objective Medications Current Medications Medications (Trade) Dose Ordered Sig/Nazario Route Start Time Stop Time Status Last Admin (Aspirin Chew) 81 mg DAILY CHEW 07/20/17 09:00 07/21/17 08:59 (Lioresal) 10 mg TID PO 07/19/17 18:00 07/21/17 08:59 (Sinemet 25-100 Mg) 1 tab Q8HR PO 07/19/17 22:00 07/21/17 05:54 (Plavix) 75 mg DAILY PO 07/20/17 09:00 07/21/17 08:59 (Neurontin) 800 mg TID PO 07/19/17 18:00 07/21/17 08:59 (Synthroid) 100 mcg DAILY@0600 PO 07/20/17 06:00 07/21/17 05:54 (Percocet 5-325 Mg) 1 tab Q8H PRN PO 07/19/17 17:30 07/21/17 09:00 (Zoloft) 50 mg DAILY PO 07/20/17 09:00 07/21/17 09:00 (Pravachol) 40 mg DAILY PO 07/20/17 09:00 07/21/17 09:00 (NS Flush) 2 ml UNSCH PRN IV FLUSH 07/19/17 17:30 (NS Flush) 2 ml BID IV FLUSH 07/19/17 21:00 07/21/17 09:01 (Tylenol) 650 mg Q4H PRN PO 07/19/17 17:30 (Zofran Inj) 4 mg Q6H PRN IVP 07/19/17 17:30 (Compazine Supp) 25 mg Q12H PRN RECTAL 07/19/17 17:30 (Ambien) 5 mg HS PRN PO 07/19/17 17:30 (Lovenox Inj) 40 mg Q24H SQ 07/19/17 18:00 07/20/17 17:30 (Tylenol) 650 mg Q6H PRN PO 07/19/17 17:30 (Morphine Inj) 2 mg Q3H PRN IV 07/19/17 17:30 07/20/17 12:13 (Morphine Inj) 4 mg Q3H PRN IV 07/19/17 17:30 (Narcan Inj) 0.4 mg UNSCH PRN IV 8/30/17 17:30 (Brittany-Colace) 1 tab BID PO 07/19/17 21:00 07/19/17 22:20 (Milk Of Magnesia Liq) 30 ml Q12H PRN PO 07/19/17 17:30 (Senokot) 17.2 mg Q12H PRN PO 07/19/17 17:30 (Dulcolax Supp) 10 mg DAILY PRN RECTAL 07/19/17 17:30 (Lactulose Liq) 30 ml DAILY PRN PO 07/19/17 17:30 (Toprol Xl) 25 mg DAILY PO 07/21/17 09:00 07/21/17 08:59 Vital Signs / I&O Vital Signs Date Time Temp Pulse Resp B/P (MAP) Pulse Ox O2 Delivery O2 Flow Rate FiO2 07/21/17 06:00 44 07/21/17 05:08 44 07/21/17 04:00 48 07/21/17 03:00 42 07/21/17 03:00 97.6 55 18 136/36 (69) 91 07/21/17 02:00 45 07/21/17 01:21 45 07/21/17 00:39 51 07/20/17 23:00 44 07/20/17 23:00 98.4 54 19 154/63 (93) 93 07/20/17 22:00 52 07/20/17 21:30 62 07/20/17 21:30 97.5 60 20 160/81 (107) 92 07/20/17 20:00 54 07/20/17 19:00 45 07/20/17 18:01 53 07/20/17 17:23 55 07/20/17 16:34 46 07/20/17 15:35 55 07/20/17 15:35 97.3 55 16 111/54 (73) 96 07/20/17 14:04 54 07/20/17 13:40 16 07/20/17 13:08 56 07/20/17 12:31 58 07/20/17 11:30 56 07/20/17 11:30 98.0 60 16 138/71 (93) 96 07/20/17 10:00 58 I/O 07/20/17 07/20/17 07/20/17 07/21/17 07/21/17 9/1/17 07:00 15:00 23:00 07:00 15:00 23:00 Intake Total 480 ml 450 ml 240 ml Output Total 625 ml 700 ml 600 ml Balance -145 ml -250 ml -360 ml Intake Oral 480 ml 450 ml 240 ml Output Urine Total 625 ml 700 ml 600 ml # Bowel Movements 1 Physical Exam GENERAL: Well-nourished, well-developed patient. SKIN: Warm and dry. HEAD: Normocephalic. EYES: No scleral icterus. No injection or drainage. NECK: Supple, trachea midline. No JVD or lymphadenopathy. CARDIOVASCULAR: Regular rate and rhythm 3/6 TERESE murmur, gallops, or rubs. RESPIRATORY: Breath sounds equal bilaterally. No accessory muscle use. GASTROINTESTINAL: Abdomen soft, non-tender, nondistended. EXTREMITIES: No cyanosis, or edema. NEUROLOGICAL: Awake, alert, and oriented x 3. Non-focal. Imaging Last Impressions Chest X-Ray 07/19/17 1222 Signed Impressions: Service Date/Time: Wednesday, July 19, 2017 12:33 - CONCLUSION: No acute disease. Cory Dela Cruz MD FACR Chest CTA 07/19/17 0000 Signed Impressions: Service Date/Time: Wednesday, July 19, 2017 18:26 - CONCLUSION: 1. Atherosclerotic disease throughout the aorta generating an irregular luminal contour within the infrarenal extent. No aneurysmal change. 2. Special note is made of a 3.0 x 2.3 cm soft tissue structure anterior to the junction of the external iliac artery and common femoral artery on the right. CT characteristics would suggest a hematoma. This can be followed with ultrasound. 3. Hepatic steatosis. 4. Colonic diverticulosis. 5. 4 mm nodule within the right lower lobe. Current guidelines suggest a repeat CT of the thorax in 12 months. Khoi Vidal Jr., MD Carotid Artery Ultrasound 07/19/17 0000 Signed Impressions: Service Date/Time: Wednesday, July 19, 2017 17:08 - CONCLUSION: Mildly elevated ratio on the left. Velocity is normal. Further evaluation may be of benefit. Cory Dela Cruz MD FACR Assessment and Plan Problem List: (1) Aortic stenosis ICD Codes: I35.0 - Nonrheumatic aortic (valve) stenosis Status: Acute Plan: 77 y/o F admitted with severe symptomatic with acute on chronic diastolic heart failure. She is doing better this am. She is being evaluated for TAVR. Recommendations: 1. Cont TAVR evaluation 2. Cont medical therapy 3. Stable to d/c home today with follow up with Structural Heart Valve Team next week (2) Chest pain ICD Codes: R07.9 - Chest pain, unspecified Status: Acute (3) Hyperlipidemia ICD Codes: E78.5 - Hyperlipidemia, unspecified (4) Acute on chronic diastolic heart failure ICD Codes: I50.33 - Acute on chronic diastolic (congestive) heart failure Status: Acute Problem Qualifiers (1) Aortic stenosis: Qualified Codes: I35.0 - Nonrheumatic aortic (valve) stenosis (2) Chest pain: Qualified Codes: R07.9 - Chest pain, unspecified (3) Hyperlipidemia: Qualified Codes: E78.5 - Hyperlipidemia, unspecified Clifford Damico MD Jul 21, 2017 09:14
--- NOTE | 2017-07-21 10:45 | PD.CONS ---
History of Present Illness Service CT Surgery Consult Requested By Dr. Aguilar Reason for Consult Severe symptomatic aortic stenosis Primary Care Physician Lucian Castillo M.D. Diagnoses: (1) Aortic stenosis (2) Chest pain (3) Acute on chronic diastolic heart failure History of Present Illness 77-year-old female, patient of Dr. Chelle Castillo in [place], Dr. Saturnino Monreal, Dr. Aguilar has had complaint of mid sternal chest discomfort for the past 4 or 5 months occurring a couple times a week with some shortness of breath. Last , she was with a friend, and had a syncopal episode. Her friend said that her eyes rolled up in her head as their friend called . She has history of heart murmur that she has known for years but never formally evaluated. She underwent echocardiogram while she was at [facility] which showed an EF of 50-55%, There was some mild aortic insufficiency, severe aortic stenosis with a mean gradient of 80 mmHg. Aortic valve area calculated at 0.49 cm2. Mild mitral regurgitation, moderate tricuspid regurgitation, some evidence of moderate pulmonary hypertension with an RV systolic pressure of 46 mmHg. She then underwent cardiac cath right and left which showed right atrial pressures of 8, PA pressures of 38/8 with a mean of 22, pulmonary capillary wedge pressure of 24. Cardiac output is 6.4. The valve area was again calculated at 0.6. At that time there showed no evidence of angiographically significant coronary disease. Past Family Social History Allergies: Coded Allergies: No Known Allergies (Unverified , 07/19/17) Past Medical History She has a history of right breast cancer 2005 with right lumpectomy, chemo and radiation. Hyperlipidemia, hypertension, hypothyroidism. Current tobacco abuse, chronic pain and fibromyalgia. History of depression. She takes Sinemet for tremors. She denies having been diagnosed with Parkinson's. Her surgeries include right lumpectomy. Other surgeries include a lap cholecystectomy, appendectomy, tubal ligation, right Achilles tendon repair. ALLERGIES No known allergies. MEDICATIONS Home meds include: 1. Baclofen 10 p.o. t.i.d. 2. Plavix 75 daily. 3. Simvastatin 20 daily. 4. Metoprolol 50 daily. 5. Aspirin 81 daily. 6. She takes Percocet p.r.n. for pain. 7. Gabapentin 800 t.i.d. 8. Sertraline 50 p.o. daily. 9. Sinemet 25/100 p.o. q. 8 hours. 10. Levothyroxine 100 mics p.o. daily. Active Ordered Medications Current Medications Medications (Trade) Dose Ordered Sig/Nazario Route Start Time Stop Time Status Last Admin (Aspirin Chew) 81 mg DAILY CHEW 07/20/17 09:00 07/21/17 08:59 (Lioresal) 10 mg TID PO 07/19/17 18:00 07/21/17 08:59 (Sinemet 25-100 Mg) 1 tab Q8HR PO 07/19/17 22:00 07/21/17 05:54 (Plavix) 75 mg DAILY PO 07/20/17 09:00 07/21/17 08:59 (Neurontin) 800 mg TID PO 07/19/17 18:00 07/21/17 08:59 (Synthroid) 100 mcg DAILY@0600 PO 07/20/17 06:00 07/21/17 05:54 (Percocet 5-325 Mg) 1 tab Q8H PRN PO 07/19/17 17:30 07/21/17 09:00 (Zoloft) 50 mg DAILY PO 07/20/17 09:00 07/21/17 09:00 (Pravachol) 40 mg DAILY PO 07/20/17 09:00 07/21/17 09:00 (NS Flush) 2 ml UNSCH PRN IV FLUSH 07/19/17 17:30 (NS Flush) 2 ml BID IV FLUSH 07/19/17 21:00 07/21/17 09:01 (Tylenol) 650 mg Q4H PRN PO 07/19/17 17:30 (Zofran Inj) 4 mg Q6H PRN IVP 07/19/17 17:30 (Compazine Supp) 25 mg Q12H PRN RECTAL 07/19/17 17:30 (Ambien) 5 mg HS PRN PO 07/19/17 17:30 (Lovenox Inj) 40 mg Q24H SQ 07/19/17 18:00 07/20/17 17:30 (Tylenol) 650 mg Q6H PRN PO 07/19/17 17:30 (Morphine Inj) 2 mg Q3H PRN IV 07/19/17 17:30 07/20/17 12:13 (Morphine Inj) 4 mg Q3H PRN IV 07/19/17 17:30 (Narcan Inj) 0.4 mg UNSCH PRN IV 07/19/17 17:30 (Brittany-Colace) 1 tab BID PO 07/19/17 21:00 07/19/17 22:20 (Milk Of Magnesia Liq) 30 ml Q12H PRN PO 07/19/17 17:30 (Senokot) 17.2 mg Q12H PRN PO 07/19/17 17:30 (Dulcolax Supp) 10 mg DAILY PRN RECTAL 07/19/17 17:30 (Lactulose Liq) 30 ml DAILY PRN PO 07/19/17 17:30 (Toprol Xl) 25 mg DAILY PO 07/21/17 09:00 07/21/17 08:59 Family History Unremarkable Social History Tobacco abuse, denies ETOH Physical Exam Vital Signs Vital Signs Date Time Temp Pulse Resp B/P (MAP) Pulse Ox O2 Delivery O2 Flow Rate FiO2 07/21/17 10:17 54 07/21/17 10:17 16 07/21/17 09:18 53 07/21/17 08:16 54 07/21/17 07:39 97.8 61 18 138/63 (88) 92 07/21/17 07:39 44 07/21/17 06:00 44 07/21/17 05:08 44 07/21/17 04:00 48 07/21/17 03:00 42 07/21/17 03:00 97.6 55 18 136/36 (69) 91 07/21/17 02:00 45 07/21/17 01:21 45 07/21/17 00:39 51 07/20/17 23:00 44 07/20/17 23:00 98.4 54 19 154/63 (93) 93 07/20/17 22:00 52 07/20/17 21:30 62 07/20/17 21:30 97.5 60 20 160/81 (107) 92 07/20/17 20:00 54 07/20/17 19:00 45 07/20/17 18:01 53 07/20/17 17:23 55 07/20/17 16:34 46 07/20/17 15:35 55 07/20/17 15:35 97.3 55 16 111/54 (73) 96 07/20/17 14:04 54 07/20/17 13:40 16 07/20/17 13:08 56 07/20/17 12:31 58 07/20/17 11:30 56 07/20/17 11:30 98.0 60 16 138/71 (93) 96 Physical Exam GENERAL: This is a well-nourished, well-developed patient, in no apparent distress. SKIN: No rashes, ecchymoses or lesions. Cool and dry. HEAD: Atraumatic. Normocephalic. No temporal or scalp tenderness. EYES: Pupils equal round and reactive. Extraocular motions intact. No scleral icterus. No injection or drainage. ENT: Nose without bleeding, purulent drainage or septal hematoma. Throat without erythema, tonsillar hypertrophy or exudate. Uvula midline. Airway patent. NECK: Trachea midline. No JVD or lymphadenopathy. Supple, nontender, no meningeal signs. CARDIOVASCULAR: Regular rate and rhythm with 2.6 TERESE at RUSB.. RESPIRATORY: Clear to auscultation. Breath sounds equal bilaterally. No wheezes , rales, or rhonchi. GASTROINTESTINAL: Abdomen soft, non-tender, nondistended. No hepato-splenomegaly , or palpable masses. No guarding. MUSCULOSKELETAL: Extremities without clubbing, cyanosis, or edema. No joint tenderness, effusion, or edema noted. No calf tenderness. Negative Homans sign bilaterally. NEUROLOGICAL: Awake and alert. Cranial nerves II through XII intact. Motor and sensory grossly within normal limits. Five out of 5 muscle strength in all muscle groups. Normal speech. Laboratory Date/Time Source Procedure Growth Status 07/19/17 16:30 Urine Clean Catch Urine Culture - Preliminary IMMATURE GROWTH - REINCUBATE Resulted Result Diagram: 07/20/17 0642 07/19/17 2300 Imaging Last Impressions Chest X-Ray 07/19/17 1222 Signed Impressions: Service Date/Time: Wednesday, July 19, 2017 12:33 - CONCLUSION: No acute disease. Cory Dela Cruz MD FACR Chest CTA 07/19/17 0000 Signed Impressions: Service Date/Time: Wednesday, July 19, 2017 18:26 - CONCLUSION: 1. Atherosclerotic disease throughout the aorta generating an irregular luminal contour within the infrarenal extent. No aneurysmal change. 2. Special note is made of a 3.0 x 2.3 cm soft tissue structure anterior to the junction of the external iliac artery and common femoral artery on the right. CT characteristics would suggest a hematoma. This can be followed with ultrasound. 3. Hepatic steatosis. 4. Colonic diverticulosis. 5. 4 mm nodule within the right lower lobe. Current guidelines suggest a repeat CT of the thorax in 12 months. Khoi Vidal Jr., MD Carotid Artery Ultrasound 07/19/17 0000 Signed Impressions: Service Date/Time: Monday, July 19, 2017 17:08 - CONCLUSION: Mildly elevated ratio on the left. Velocity is normal. Further evaluation may be of benefit. Cory Dela Cruz MD FACR Course Patient is stable on the step down shah with no complaints presently. Assessment and Plan Problem List: (1) Critical aortic valve stenosis ICD Codes: I35.0 - Nonrheumatic aortic (valve) stenosis Status: Acute (2) Acute on chronic diastolic heart failure ICD Codes: I50.33 - Acute on chronic diastolic (congestive) heart failure Status: Acute Assessment and Plan 77 y/o female presents with syncopal episode and chest pain with severe aortic stenosis. AVR is recommended. She has some frailty issues and is intermediate risk for surgical AVR. Recommend TAVR consideration. Risk Model and Variables - STS Adult Cardiac Surgery Database Version 2.81 RISK SCORES About the STS Risk Calculator Procedure: AV Replacement Risk of Mortality: 4.015% Morbidity or Mortality: 17.8% Long Length of Stay: 8.541% Short Length of Stay: 29.062% Permanent Stroke: 1.55% Prolonged Ventilation: 13.412% DSW Infection: 0.349% Renal Failure: 3.77% Reoperation: 7.132% Problem Qualifiers (1) Aortic stenosis: Qualified Codes: I35.0 - Nonrheumatic aortic (valve) stenosis (2) Chest pain: Qualified Codes: R07.9 - Chest pain, unspecified Nat Alexis MD Jul 21, 2017 10:44
--- NOTE | 2017-07-21 11:42 | EKG ---
Date Performed: 07/20/2017 Time Performed: 00:40:10 PTAGE: 77 years EKG: Sinus bradycardia with sinus arrhythmia Extensive ST-T changes may be due to myocardial isc hemia Compared to previous tracing the ST depressions are slightly improved, otherwise no major bearden e Abnormal ECG PREVIOUS TRACING : 07/19/2017 12.15 DOCTOR: Geovany Zarco Interpretating Date/Time 07/21/2017 11:41:02
--- NOTE | 2017-07-21 17:25 | HHI.PR ---
Subjective Remarks Patient denies cp/sob denies fevers/chills no dysuria Objective Vitals Vital Signs Date Time Temp Pulse Resp B/P (MAP) Pulse Ox O2 Delivery O2 Flow Rate FiO2 07/21/17 17:14 50 07/21/17 16:44 59 07/21/17 15:07 58 07/21/17 15:07 97.6 58 18 139/70 (93) 95 07/21/17 14:12 57 07/21/17 13:08 55 07/21/17 12:17 54 07/21/17 11:41 56 07/21/17 11:41 97.5 56 18 125/67 (86) 94 07/21/17 11:06 94 07/21/17 10:17 54 07/21/17 10:17 16 07/21/17 09:18 53 07/21/17 08:16 54 07/21/17 07:39 97.8 61 18 138/63 (88) 92 07/21/17 07:39 44 07/21/17 06:00 44 07/21/17 05:08 44 07/21/17 04:00 48 07/21/17 03:00 42 07/21/17 03:00 97.6 55 18 136/36 (69) 91 07/21/17 02:00 45 07/21/17 01:21 45 07/21/17 00:39 51 07/20/17 23:00 44 07/20/17 23:00 98.4 54 19 154/63 (93) 93 07/20/17 22:00 52 07/20/17 21:30 62 07/20/17 21:30 97.5 60 20 160/81 (107) 92 07/20/17 20:00 54 07/20/17 19:00 45 07/20/17 18:01 53 07/20/17 17:23 55 I/O 07/20/17 07/20/17 07/20/17 07/21/17 07/21/17 07/21/17 07:00 15:00 23:00 07:00 15:00 23:00 Intake Total 480 ml 450 ml 240 ml 640 ml Output Total 625 ml 700 ml 600 ml 450 ml Balance -145 ml -250 ml -360 ml 190 ml Intake Oral 480 ml 450 ml 240 ml 640 ml Output Urine Total 625 ml 700 ml 600 ml 450 ml # Voids 2 # Bowel Movements 1 1 Result Diagram: 07/20/17 0642 07/19/17 2300 Imaging Last Impressions Chest X-Ray 07/19/17 1222 Signed Impressions: Service Date/Time: Wednesday, July 19, 2017 12:33 - CONCLUSION: No acute disease. Cory Dela Cruz MD FACR Chest CTA 07/19/17 0000 Signed Impressions: Service Date/Time: Wednesday, July 19, 2017 18:26 - CONCLUSION: 1. Atherosclerotic disease throughout the aorta generating an irregular luminal contour within the infrarenal extent. No aneurysmal change. 2. Special note is made of a 3.0 x 2.3 cm soft tissue structure anterior to the junction of the external iliac artery and common femoral artery on the right. CT characteristics would suggest a hematoma. This can be followed with ultrasound. 3. Hepatic steatosis. 4. Colonic diverticulosis. 5. 4 mm nodule within the right lower lobe. Current guidelines suggest a repeat CT of the thorax in 12 months. Khoi Vidal Jr., MD Carotid Artery Ultrasound 07/19/17 0000 Signed Impressions: Service Date/Time: Wednesday, July 19, 2017 17:08 - CONCLUSION: Mildly elevated ratio on the left. Velocity is normal. Further evaluation may be of benefit. Cory Dela Cruz MD FACR Objective Remarks AAOx3 NAD Bilateral crackles on both lung bases on auscultation Holosystolic murmur best on the 2ng right intercostal space radiating to the neck no edema in lower extremities Medications and IVs Current Medications Medications (Trade) Dose Ordered Sig/Nazario Route Start Time Stop Time Status Last Admin (Aspirin Chew) 81 mg DAILY CHEW 07/20/17 09:00 07/21/17 08:59 (Lioresal) 10 mg TID PO 07/19/17 18:00 07/21/17 13:12 (Sinemet 25-100 Mg) 1 tab Q8HR PO 07/19/17 22:00 07/21/17 13:12 (Plavix) 75 mg DAILY PO 07/20/17 09:00 07/21/17 08:59 (Neurontin) 800 mg TID PO 07/19/17 18:00 07/21/17 13:12 (Synthroid) 100 mcg DAILY@0600 PO 07/20/17 06:00 07/21/17 05:54 (Percocet 5-325 Mg) 1 tab Q8H PRN PO 07/19/17 17:30 07/21/17 09:00 (Zoloft) 50 mg DAILY PO 07/20/17 09:00 07/21/17 09:00 (Pravachol) 40 mg DAILY PO 07/20/17 09:00 07/21/17 09:00 (NS Flush) 2 ml UNSCH PRN IV FLUSH 07/19/17 17:30 (NS Flush) 2 ml BID IV FLUSH 07/19/17 21:00 07/21/17 09:01 (Tylenol) 650 mg Q4H PRN PO 07/19/17 17:30 (Zofran Inj) 4 mg Q6H PRN IVP 07/19/17 17:30 (Compazine Supp) 25 mg Q12H PRN RECTAL 07/19/17 17:30 (Ambien) 5 mg HS PRN PO 07/19/17 17:30 (Lovenox Inj) 40 mg Q24H SQ 07/19/17 18:00 07/20/17 17:30 (Tylenol) 650 mg Q6H PRN PO 07/19/17 17:30 (Morphine Inj) 2 mg Q3H PRN IV 07/19/17 17:30 07/20/17 12:13 (Morphine Inj) 4 mg Q3H PRN IV 07/19/17 17:30 (Narcan Inj) 0.4 mg UNSCH PRN IV 07/19/17 17:30 (Brittany-Colace) 1 tab BID PO 07/19/17 21:00 07/19/17 22:20 (Milk Of Magnesia Liq) 30 ml Q12H PRN PO 07/19/17 17:30 (Senokot) 17.2 mg Q12H PRN PO 07/19/17 17:30 (Dulcolax Supp) 10 mg DAILY PRN RECTAL 07/19/17 17:30 (Lactulose Liq) 30 ml DAILY PRN PO 07/19/17 17:30 (Toprol Xl) 25 mg DAILY PO 07/21/17 09:00 07/21/17 08:59 Ceftriaxone Sodium 2000 mg/ Sodium Chloride 100 ml @ 200 mls/hr Q24H IV 07/21/17 18:00 A/P Problem List: (1) Critical aortic valve stenosis ICD Code: I35.0 - Nonrheumatic aortic (valve) stenosis Status: Acute Plan: Patient hemodynamically stable at this moment. Echo as described above confirms severe aortic stenosis and normal ef with grade 1 [address] dysfunction. Cardiology and CT surgery consulted. Appreciate CT surgery consultation and recommendations. The patient needs aVR, however due to her frailty it was recommended elevation for TAVR. Cardiology has cleared the patient to be discharged home and 2 saturation is outpatient. (2) Chest pain ICD Code: R07.9 - Chest pain, unspecified Status: Resolved Plan: Chest pain likely due to demand ischemia due to severe aortic stenosis. Cardiac enzymes negative x 3. EKG reviewed by me showed extensive ST - T changes due to myocardial ischemia but no ST elevation. Continue ASA and Plavix for now. (3) Acute on chronic diastolic heart failure ICD Code: I50.33 - Acute on chronic diastolic (congestive) heart failure Status: Resolved Plan: Mild crackles on exam. Avoid overdiuresis unless necessary due to dependence on preload. Also avoid nitrates if chest pain. (4) HTN (hypertension) ICD Code: I10 - Essential (primary) hypertension Status: Chronic Plan: Seems to be stable. Agree with discontinuation of beta kaushik due to bradycardia. (5) Hyperlipidemia ICD Code: E78.5 - Hyperlipidemia, unspecified Plan: Continue statin therapy. (6) Fibromyalgia ICD Code: M79.7 - Fibromyalgia Status: Chronic Plan: Seems stable. Continue gabapentin and Baclofen. (7) Chronic pain syndrome ICD Code: G89.4 - Chronic pain syndrome Status: Chronic Plan: Seems to be stable. Continue Tylenol and Percocet for pain. (8) Neuropathy ICD Code: G62.9 - Polyneuropathy, unspecified Plan: Stable, continue gabapentin. (9) Hypothyroidism ICD Code: E03.9 - Hypothyroidism, unspecified Status: Chronic Plan: On Levothyroxine. Continue. tSH and free t4 normal. (10) Depression ICD Code: F32.9 - Major depressive disorder, single episode, unspecified Status: Chronic Plan: Continue Zoloft. Stable. (11) Parkinsons disease ICD Code: G20 - Parkinson's disease Plan: Seems to be stable. Continue Carbidopa levodopa. (12) Abnormal urinalysis ICD Code: R82.90 - Unspecified abnormal findings in urine Plan: Patient had a urinalysis which was abnormal with large leukocyte esterase , increased white blood cell with white blood cell clumps for culture was indicated. Urine culture is consistent with mixed gram-positive maria isabel with probable contaminants. However there is an immature growth that is been re incubated. I will start the patient on Rocephin 2 g IV every 24 hours, but before this I have discussed with the nurse to obtain a urine sample via straight catheter. We'll treat empirically for a urinary tract infection. Assessment and Plan DVT Prophylaxis: on SCD's, started on Lovenox however will DC given that patient is on ASA and Plavix. Discharge Planning Continue to monitor and the cardiac floor. Discharge pending repeat urinalysis. Problem Qualifiers (1) Chest pain: Qualified Codes: R07.9 - Chest pain, unspecified (2) HTN (hypertension): Qualified Codes: I10 - Essential (primary) hypertension (3) Hyperlipidemia: Qualified Codes: E78.5 - Hyperlipidemia, unspecified (4) Hypothyroidism: Qualified Codes: E03.9 - Hypothyroidism, unspecified Krystian Cruz MD Jul 21, 2017 17:24
[2017-07-21] MEDS ORDERED: cefTRIAXone INJ 2,000 MG in SODIUM CHLORIDE 0.9% INJ 100 ML IV SCH (18:00)
[2017-07-21] MEDS: ENOXAPARIN SODIUM 40 MG/0.4 ML SYRINGE SQ SCH (18:02)
[2017-07-21 19:01] LABS: BACTERIA, URINE RARE /hpf; BLOOD, URINE NEG (NEG); GLUCOSE,URINE NEG (NEG); KETONE, URINE NEG (NEG); MUCUS URINE FEW /lpf (OCC); NITRITE,URINE NEG (NEG); PH, URINE 5.5 (5.0-8.5); SQUAMOUS EPITHELIAL CELL URINE 1 /hpf (0-5); URINE COLOR YELLOW (YELLW/STRAW)
[2017-07-21 19:04] LABS: COMMENT (UR) CATH-CULTURE IND; CULTURE IF INDICATED CATH CULTURE IND
[2017-07-22] VITALS (18 sets, daily range): BP systolic 141–155; BP diastolic 64–76; PULSE 42–60; RESP 18; TEMP 97.6–98.2; O2SAT 94–97
[2017-07-22] MEDS: oxyCODONE/ACETAMINOPHEN 5 MG/325 MG TAB PO PRN ×2 (04:15→11:03)
[2017-07-22] MEDS: CARBIDOPA/LEVODOPA 25 MG/100 MG TAB PO SCH ×2 (06:29→14:08)
[2017-07-22] MEDS: LEVOTHYROXINE SODIUM 100 MCG TAB PO SCH (06:29)
[2017-07-22] MEDS: GABAPENTIN 400 MG CAP PO SCH ×2 (09:56→13:04)
[2017-07-22] MEDS: CLOPIDOGREL 75 MG TAB PO SCH (09:56)
[2017-07-22] MEDS: SERTRALINE HCL 50 MG TAB PO SCH (09:56)
[2017-07-22] MEDS: BACLOFEN 10 MG TAB PO SCH ×2 (09:56→13:04)
[2017-07-22] MEDS: METOPROLOL SUCCINATE 50 MG EXTENDED RELEASE TAB PO SCH (09:56)
[2017-07-22] MEDS: DOCUSATE SODIUM 50 MG/SENNA 8.6 MG TAB PO SCH (09:57)
[2017-07-22] MEDS: PRAVASTATIN SOD 40 MG TAB PO SCH (09:57)
[2017-07-22] MEDS: SODIUM CHLORIDE 0.9% FLUSH 10 ML FLUSH IV FLUSH SCH (09:57)
[2017-07-22] MEDS: ASPIRIN 81 MG CHEW TAB CHEW SCH (09:57)
--- NOTE | 2017-07-22 13:37 | HHI.PR ---
Subjective Remarks Patient denies chest pain or shortness of breath. Denies dizziness denies dysuria Patient is afebrile with stable vital signs. Objective Vitals Vital Signs Date Time Temp Pulse Resp B/P (MAP) Pulse Ox O2 Delivery O2 Flow Rate FiO2 07/22/17 13:01 54 07/22/17 12:00 54 07/22/17 11:30 98.2 57 18 145/76 (99) 95 07/22/17 11:00 58 07/22/17 10:00 60 07/22/17 09:00 56 07/22/17 08:00 48 07/22/17 07:01 48 07/22/17 06:00 44 07/22/17 05:00 42 07/22/17 04:00 53 07/22/17 03:00 44 07/22/17 03:00 97.6 54 18 144/65 (91) 94 07/22/17 02:00 50 07/22/17 01:00 42 07/22/17 00:00 43 07/21/17 23:00 44 07/21/17 23:00 97.8 50 16 148/70 (96) 95 07/21/17 22:00 44 07/21/17 21:00 46 07/21/17 20:00 97.9 52 16 133/64 (87) 94 07/21/17 20:00 53 07/21/17 19:53 95 21 07/21/17 19:00 56 07/21/17 18:28 56 07/21/17 17:14 50 07/21/17 16:44 59 07/21/17 15:07 58 07/21/17 15:07 97.6 58 18 139/70 (93) 95 07/21/17 14:12 57 I/O 07/21/17 07/21/17 07/21/17 07/22/17 07/22/17 07/22/17 06:59 14:59 22:59 06:59 14:59 22:59 Intake Total 240 ml 640 ml 240 ml Output Total 600 ml 450 ml 1000 ml Balance -360 ml 190 ml -760 ml Intake Oral 240 ml 640 ml 240 ml Output Urine Total 600 ml 450 ml 1000 ml # Voids 2 # Bowel Movements 1 Result Diagram: 07/20/17 0642 07/19/17 2300 Imaging Last Impressions Chest X-Ray 07/19/17 1222 Signed Impressions: Service Date/Time: Wednesday, July 19, 2017 12:33 - CONCLUSION: No acute disease. Cory Dela Cruz MD FACR Chest CTA 07/19/17 0000 Signed Impressions: Service Date/Time: Wednesday, July 19, 2017 18:26 - CONCLUSION: 1. Atherosclerotic disease throughout the aorta generating an irregular luminal contour within the infrarenal extent. No aneurysmal change. 2. Special note is made of a 3.0 x 2.3 cm soft tissue structure anterior to the junction of the external iliac artery and common femoral artery on the right. CT characteristics would suggest a hematoma. This can be followed with ultrasound. 3. Hepatic steatosis. 4. Colonic diverticulosis. 5. 4 mm nodule within the right lower lobe. Current guidelines suggest a repeat CT of the thorax in 12 months. Khoi Vidal Jr., MD Carotid Artery Ultrasound 07/19/17 0000 Signed Impressions: Service Date/Time: Wednesday, July 19, 2017 17:08 - CONCLUSION: Mildly elevated ratio on the left. Velocity is normal. Further evaluation may be of benefit. Cory Dela Cruz MD FACR Objective Remarks AAOx3 NAD Bilateral crackles on both lung bases on auscultation Holosystolic murmur best on the 2ng right intercostal space radiating to the neck no edema in lower extremities Procedures none Medications and IVs Current Medications Medications (Trade) Dose Ordered Sig/Nazario Route Start Time Stop Time Status Last Admin (Aspirin Chew) 81 mg DAILY CHEW 07/20/17 09:00 07/22/17 09:57 (Lioresal) 10 mg TID PO 07/19/17 18:00 07/22/17 13:04 (Sinemet 25-100 Mg) 1 tab Q8HR PO 07/19/17 22:00 07/22/17 06:29 (Plavix) 75 mg DAILY PO 07/20/17 09:00 07/22/17 09:56 (Neurontin) 800 mg TID PO 07/19/17 18:00 07/22/17 13:04 (Synthroid) 100 mcg DAILY@0600 PO 07/20/17 06:00 07/22/17 06:29 (Percocet 5-325 Mg) 1 tab Q8H PRN PO 07/19/17 17:30 07/22/17 11:03 (Zoloft) 50 mg DAILY PO 07/20/17 09:00 07/22/17 09:56 (Pravachol) 40 mg DAILY PO 07/20/17 09:00 07/22/17 09:57 (NS Flush) 2 ml UNSCH PRN IV FLUSH 07/19/17 17:30 (NS Flush) 2 ml BID IV FLUSH 07/19/17 21:00 07/22/17 09:57 (Tylenol) 650 mg Q4H PRN PO 07/19/17 17:30 (Zofran Inj) 4 mg Q6H PRN IVP 07/19/17 17:30 (Compazine Supp) 25 mg Q12H PRN RECTAL 07/19/17 17:30 (Ambien) 5 mg HS PRN PO 07/19/17 17:30 (Lovenox Inj) 40 mg Q24H SQ 07/19/17 18:00 07/21/17 18:02 (Tylenol) 650 mg Q6H PRN PO 07/19/17 17:30 07/21/17 21:35 (Morphine Inj) 2 mg Q3H PRN IV 07/19/17 17:30 07/20/17 12:13 (Morphine Inj) 4 mg Q3H PRN IV 07/19/17 17:30 (Narcan Inj) 0.4 mg UNSCH PRN IV 07/19/17 17:30 (Brittany-Colace) 1 tab BID PO 07/19/17 21:00 07/22/17 09:57 (Milk Of Magnesia Liq) 30 ml Q12H PRN PO 07/19/17 17:30 (Senokot) 17.2 mg Q12H PRN PO 07/19/17 17:30 (Dulcolax Supp) 10 mg DAILY PRN RECTAL 07/19/17 17:30 (Lactulose Liq) 30 ml DAILY PRN PO 07/19/17 17:30 (Toprol Xl) 25 mg DAILY PO 07/21/17 09:00 07/22/17 09:56 Ceftriaxone Sodium 2000 mg/ Sodium Chloride 100 ml @ 200 mls/hr Q24H IV 07/21/17 18:00 07/21/17 18:08 Urinary Catheter: No Vascular Central Line Catheter: No A/P Problem List: (1) Critical aortic valve stenosis ICD Code: I35.0 - Nonrheumatic aortic (valve) stenosis Status: Acute (2) Chest pain ICD Code: R07.9 - Chest pain, unspecified Status: Resolved (3) Acute on chronic diastolic heart failure ICD Code: I50.33 - Acute on chronic diastolic (congestive) heart failure Status: Resolved (4) HTN (hypertension) ICD Code: I10 - Essential (primary) hypertension Status: Chronic (5) Hyperlipidemia ICD Code: E78.5 - Hyperlipidemia, unspecified (6) Fibromyalgia ICD Code: M79.7 - Fibromyalgia Status: Chronic (7) Chronic pain syndrome ICD Code: G89.4 - Chronic pain syndrome Status: Chronic (8) Neuropathy ICD Code: G62.9 - Polyneuropathy, unspecified (9) Hypothyroidism ICD Code: E03.9 - Hypothyroidism, unspecified Status: Chronic (10) Depression ICD Code: F32.9 - Major depressive disorder, single episode, unspecified Status: Chronic (11) Parkinsons disease ICD Code: G20 - Parkinson's disease (12) Abnormal urinalysis ICD Code: R82.90 - Unspecified abnormal findings in urine Assessment and Plan (1) Critical aortic valve stenosis Plan: Patient hemodynamically stable at this moment. Echo as described above confirms severe aortic stenosis and normal ef with grade [address] dysfunction[address] Cardiology and CT surgery consulted. Appreciate CT surgery consultation and recommendations. The patient needs aVR, however due to her frailty it was recommended elevation for TAVR. Cardiology has cleared the patient to be discharged home and to have the evaluation as an outpatient. (2) Chest pain Plan: Chest pain likely due to demand ischemia due to severe aortic stenosis. Cardiac enzymes negative x 3. EKG reviewed by me showed extensive ST - T changes due to myocardial ischemia but no ST elevation. Continue ASA and Plavix (3) Acute on chronic diastolic heart failure Plan: Mild crackles on exam. Avoid overdiuresis unless necessary due to dependence on preload. Also avoid nitrates if chest pain. (4) HTN (hypertension) Plan: Seems to be stable. Agree with discontinuation of beta kaushik due to bradycardia. (5) Hyperlipidemia Plan: Continue statin therapy. (6) Fibromyalgia Plan: Seems stable. Continue gabapentin and Baclofen. (7) Chronic pain syndrome Plan: Seems to be stable. Continue Tylenol and Percocet for pain. (8) Neuropathy Plan: Stable, continue gabapentin. (9) Hypothyroidism Plan: On Levothyroxine. Continue. tSH and free t4 normal. (10) Depression Plan: Continue Zoloft. Stable. (11) Parkinsons disease Plan: Seems to be stable. Continue Carbidopa levodopa. (12) Abnormal urinalysis Plan: Patient had a urinalysis which was abnormal with large leukocyte esterase , increased white blood cell with white blood cell clumps for culture was indicated. Urine culture is consistent with mixed gram-positive maria isabel with probable contaminants. However there is an immature growth that is been re incubated. 07/22 UTI confirmed on repeat Ua via straight cath. Patient started on Iv Rocephin on 07/21. Will Discharge on oral Ceftin. Micki Almodovar our nurse coordinator will be following the urine culture and if needed a different antibiotic will be called to the patient's pharmacy if necessary. Assessment and Plan DVT Prophylaxis: on SCD's, started on Lovenox however will DC given that patient is on ASA and Plavix. DVT Prophylaxis: on SCD's, started on Lovenox however will DC given that patient is on ASA and Plavix. Discharge Planning Continue to monitor and the cardiac floor. Discharge pending repeat urinalysis. Problem Qualifiers (1) Chest pain: Qualified Codes: R07.9 - Chest pain, unspecified (2) HTN (hypertension): Qualified Codes: I10 - Essential (primary) hypertension (3) Hyperlipidemia: Qualified Codes: E78.5 - Hyperlipidemia, unspecified (4) Hypothyroidism: Qualified Codes: E03.9 - Hypothyroidism, unspecified Krystina Cruz MD Jul 22, 2017 13:37
[2017-07-22] MEDS ORDERED: CEFU1TAB20 PO (13:56)
--- NOTE | 2017-07-22 13:56 | HHI.DCPOC ---
Discharge Care Plan Diagnosis: (1) Critical aortic valve stenosis (2) Chest pain (3) Acute on chronic diastolic heart failure (4) Abnormal urinalysis (5) HTN (hypertension) (6) Chronic pain syndrome (7) Neuropathy (8) Parkinsons disease (9) Hypothyroidism (10) Hyperlipidemia (11) Fibromyalgia (12) Depression Goals to Promote Your Health * To prevent worsening of your condition and complications * To maintain your health at the optimal level Directions to Meet Your Goals Take your medications as prescribed Follow your dietary instruction Follow activity as directed Keep your appointments as scheduled Take your immunizations and boosters as scheduled If your symptoms worsen call your PCP, if no PCP go to Urgent Care Center or Emergency Room Smoking is Dangerous to Your Health. Avoid second hand smoke Call the 24-hour hour crisis hotline for domestic abuse at Krystian Cruz MD Jul 22, 2017 13:56
--- NOTE | 2017-07-22 13:58 | HHI.FF ---
Face to Face Verification Diagnosis: (1) Generalized weakness (2) Risk for falls (3) Critical aortic valve stenosis (4) Acute on chronic diastolic heart failure (5) HTN (hypertension) (6) Chronic pain syndrome (7) Neuropathy (8) Parkinsons disease (9) Hypothyroidism (10) Hyperlipidemia (11) Fibromyalgia (12) Depression (13) UTI (urinary tract infection) Physical Therapy Order: Improve ambulation, Strength and gait training Home Health Nursing Order: Signs/symptoms of disease process Medication education-adverse effect Nursing assessment with vital signs I have seen patient Marichuy Llanes on 07/22/17. My clinical findings support the need for the requested home health care services because: Deconditioned w/ increased weakness Need for psychosocial assistance High risk of falls Infection w/ risk of complications I certify that my clinical findings support that this patient is homebound because: Unsafe to leave home unassisted Need for psychosocial assistance Unable to use public transportation Krystian Cruz MD Jul 22, 2017 13:58
--- NOTE | 2017-07-22 14:12 | HHI.DS ---
Discharge Summary Admission Date Jul 19, 2017 at 16:15 Discharge Date: Jul 22, 2017 Admitting Diagnosis severe aortic stenosis; chest pain (1) Critical aortic valve stenosis ICD Code: I35.0 - Nonrheumatic aortic (valve) stenosis Diagnosis: Principal Status: Acute (2) Chest pain ICD Code: R07.9 - Chest pain, unspecified Diagnosis: Principal Status: Resolved (3) Acute on chronic diastolic heart failure ICD Code: I50.33 - Acute on chronic diastolic (congestive) heart failure Diagnosis: Principal Status: Resolved (4) HTN (hypertension) ICD Code: I10 - Essential (primary) hypertension Diagnosis: Principal Status: Chronic (5) Hyperlipidemia ICD Code: E78.5 - Hyperlipidemia, unspecified Diagnosis: Secondary (6) Fibromyalgia ICD Code: M79.7 - Fibromyalgia Diagnosis: Secondary Status: Chronic (7) Chronic pain syndrome ICD Code: G89.4 - Chronic pain syndrome Diagnosis: Secondary Status: Chronic (8) Neuropathy ICD Code: G62.9 - Polyneuropathy, unspecified Diagnosis: Secondary (9) Hypothyroidism ICD Code: E03.9 - Hypothyroidism, unspecified Diagnosis: Secondary Status: Chronic (10) Depression ICD Code: F32.9 - Major depressive disorder, single episode, unspecified Diagnosis: Secondary Status: Chronic (11) Parkinsons disease ICD Code: G20 - Parkinson's disease Diagnosis: Secondary (12) UTI (urinary tract infection) ICD Code: N39.0 - Urinary tract infection, site not specified Diagnosis: Principal (13) Risk for falls ICD Code: Z91.81 - History of falling Diagnosis: Principal (14) Generalized weakness ICD Code: R53.1 - Weakness Diagnosis: Principal Procedures none Brief History - From Admission The patient came in through the emergency department. The patient is a 77-year-old female here for chest pain, shortness breath. Has a history of cardiac issues. The patient unclear of it, however. She is nauseated. Has had some pain in the chest on and off. No fevers. No injury. The patient had chest pain. The patient is a 77-year-old female presented to the emergency department for evaluation of chest pain. States that she has been having intermittent chest pain for several months, however, it was worse today. She also reports shortness of breath that has been ongoing. The patient apparently had a syncopal episode on June, seen at [facility]. Saw a home and school visitor Dr. Cyr, cardiac catheterization was performed on Friday July 14, 2017. States she was told that there is something wrong with the valve, does not know the official report. She is on Plavix and also takes baby aspirin at night, not sure why she is on the Plavix. She denies any recent episodes. Has some dizziness. She feels that she is going to pass out but does not pass out. Denies any abdominal pain, fever or chills. The patient denies any history of AR or stents. The patient is known to have aortic stenosis from the cardiac catheterization. CBC/BMP: 07/20/17 0642 07/19/17 2300 Significant Findings Laboratory Tests Test 07/19/17 16:30 07/19/17 18:50 07/19/17 23:00 07/20/17 06:42 Urine Turbidity HAZY (CLEAR) Urine Leukocyte Esterase LARGE (NEG) Urine WBC 65 /hpf (0-5) Urine WBC Clumps RARE (NONE) Urine Bacteria FEW /hpf (NONE) Urine Mucus FEW /lpf (OCC) Albumin 3.0 GM/DL (3.4-5.0) Calcium Level 8.4 MG/DL (8.5-10.1) Aspartate Amino Transf (AST/SGOT) 13 U/L (15-37) Alanine Aminotransferase (ALT/SGPT) 9 U/L (10-53) Estimat Glomerular Filtration Rate 81 ML/MIN (>89) Monocytes (%) (Auto) 9.8 % (0.0-8.0) Test 07/20/17 07:00 07/21/17 18:20 Urine Leukocyte Esterase MOD (NEG) Urine WBC 14 /hpf (0-5) Urine Bacteria RARE /hpf (NONE) Urine Mucus FEW /lpf (OCC) Imaging Last Impressions Chest X-Ray 07/19/17 1222 Signed Impressions: Service Date/Time: Wednesday, July 19, 2017 12:33 - CONCLUSION: No acute disease. Croy Dela Cruz MD FACR Chest CTA 07/19/17 0000 Signed Impressions: Service Date/Time: Wednesday, July 19, 2017 18:26 - CONCLUSION: 1. Atherosclerotic disease throughout the aorta generating an irregular luminal contour within the infrarenal extent. No aneurysmal change. 2. Special note is made of a 3.0 x 2.3 cm soft tissue structure anterior to the junction of the external iliac artery and common femoral artery on the right. CT characteristics would suggest a hematoma. This can be followed with ultrasound. 3. Hepatic steatosis. 4. Colonic diverticulosis. 5. 4 mm nodule within the right lower lobe. Current guidelines suggest a repeat CT of the thorax in 12 months. Khoi Vidal Jr., MD Carotid Artery Ultrasound 07/19/17 0000 Signed Impressions: Service Date/Time: Wednesday, July 19, 2017 17:08 - CONCLUSION: Mildly elevated ratio on the left. Velocity is normal. Further evaluation may be of benefit. Cory Dela Cruz MD FACR PE at Discharge AAOx3 NAD Bilateral crackles on both lung bases on auscultation Holosystolic murmur best on the 2ng right intercostal space radiating to the neck no edema in lower extremities Pt update on day of discharge Denies cp/sob. Denies dizziness. Hospital Course (1) Critical aortic valve stenosis Echo as described above confirms severe aortic stenosis and normal ef with grade 1 diastolic dysfunction. Cardiology and CT surgery consulted. Appreciate CT surgery consultation and recommendations. The patient needs aVR, however due to her frailty it was recommended elevation for TAVR. Cardiology has cleared the patient to be discharged home and 2 saturation is outpatient. Patient remained hemodynamically stable during hospitalization. (2) Chest pain Chest pain likely due to demand ischemia due to severe aortic stenosis. Cardiac enzymes negative x 3. EKG reviewed by me showed extensive ST - T changes due to myocardial ischemia but no ST elevation. Continue ASA and Plavix for now as per cardiology recommendations. (3) Acute on chronic diastolic heart failure Mild crackles on exam. Avoid overdiuresis unless necessary due to dependence on preload. Also avoid nitrates if chest pain. (4) HTN (hypertension) Date of kaushik discontinued due to patient being bradycardic and having had a syncopal episode recently. (5) Hyperlipidemia Continue statin therapy. (6) Fibromyalgia Plan: Seems stable. Continue gabapentin and Baclofen. (7) Chronic pain syndrome Tylenol and Percocet for pain were continued and problem remained stable. (8) Neuropathy Patient on gabapentin at home which was continued during hospital stay. (9) Hypothyroidism TSH and free T4 were checked and normal. Levothyroxine continued. (10) Depression Continue Zoloft. Stable. (11) Parkinsons disease Carbidopa levodopa continued. (12) UTI Plan: Patient had a urinalysis which was abnormal with large leukocyte esterase , increased white blood cell with white blood cell clumps for culture was indicated. Urine culture is consistent with mixed gram-positive maria isabel with probable contaminants. However there is an immature growth that is been re incubated. 07/22 UTI confirmed on repeat UA via straight cath. Patient started on Iv Rocephin on 07/21. Will Discharge on oral Ceftin. Micki Almodovar our nurse coordinator will be following the urine culture and if needed a different antibiotic will be called to the patient's pharmacy if necessary. DVT Prophylaxis: The patient was placed on SCDs. Initially started on Lovenox however this was discontinued the patient was on aspirin and Plavix. Pt Condition on Discharge: Stable Discharge Disposition: Disch w/ Home Health Serv Discharge Time: > 30 minutes Discharge Instructions DIET: Follow Instructions for: Heart Healthy Diet Activities you can perform: See Additionl Instruction Other Activity Instructions: OOB with assistance fu PT recommendations use wheeled walker for ambulation Follow up Referrals: Appointment for Follow Up - 2-3 Days with Nat Alexis MD Cardiology - 1 Week with Clifford Damico MD PCP Follow-up - 1 Week New Medications: Cefuroxime (Cefuroxime) 500 Mg Tab 500 MG PO BID for Infection, #14 TAB 0 Refills Continued Medications: Aspirin (Aspirin) 81 Mg Chew 81 MG CHEW DAILY, TAB 0 Refills Baclofen (Baclofen) 10 Mg Tab 10 MG PO TID for Muscle Spasm, TAB 0 Refills Carbidopa-Levodopa (Carbidopa-Levodopa) 25-100 Mg Tab 1 TAB PO Q8HR for Parkinson Disease Mgmt, #90 TAB 0 Refills Clopidogrel (Clopidogrel) 75 Mg Tab 75 MG PO DAILY for Blood Clot Prevention, #30 TAB 0 Refills Gabapentin (Gabapentin) 800 Mg Tab 800 MG PO TID, #90 TAB 0 Refills Levothyroxine (Levothyroxine) 100 Mcg Tab 100 MCG PO DAILY for Thyroid, #30 TAB 0 Refills Metoprolol Succinate ER 24 HR (Metoprolol Succinate ER 24 HR) 50 Mg Tab 50 MG PO DAILY, #30 TAB 0 Refills Oxycodone-Acetaminophen (Oxycodone-Acetaminophen) 5-325 mg Tab 1 TAB PO Q8HR PRN for PAIN, TAB 0 Refills Sertraline (Sertraline) 50 Mg Tab 50 MG PO DAILY, #30 TAB 0 Refills Simvastatin (Simvastatin) 20 Mg Tab 20 MG PO DAILY for Cholesterol Management, #30 TAB 0 Refills Krystian Cruz MD Jul 22, 2017 14:12
--- NOTE | 2017-07-25 09:00 | RSPPFT ---
DATE OF PROCEDURE: 07/20/17 COMMENTS: Spirometry shows FVC of 1.4 predicted 2.4, FEV1 of 1.1 predicted 1.8, FEV1/FVC ratio 77% predicted 82%. IMPRESSION: On the basis of the above, patient likely has a restrictive lung defect and lung volumes would be helpful for further clarification if clinically indicated.
== END 2017-07-22 16:02 | disposition home health service (06) | DRG 306 ==
LOC: NEPE 11:56 → UNDOADMIN 13:04 → NEDA 13:04 → HCIN 19:24
PROVIDERS: ADMIT Hospitalist; ATTEND Hospitalist
DX: I35.2 Nonrheumatic aortic (valve) stenosis with insufficiency (principal); I50.33 Acute on chronic diastolic (congestive) heart failure; G20 Parkinson's disease; I24.8 Other forms of acute ischemic heart disease; N39.0 Urinary tract infection, site not specified; G62.9 Polyneuropathy, unspecified; R07.9 Chest pain, unspecified; I11.0 Hypertensive heart disease with heart failure; E78.5 Hyperlipidemia, unspecified; M79.7 Fibromyalgia; G89.4 Chronic pain syndrome; E03.9 Hypothyroidism, unspecified; F32.9 Major depressive disorder, single episode, unspecified; R53.1 Weakness; R01.1 Cardiac murmur, unspecified; R55 Syncope and collapse; R00.1 Bradycardia, unspecified; Z79.01 Long term (current) use of anticoagulants; Z85.3 Personal history of malignant neoplasm of breast; F17.210 Nicotine dependence, cigarettes, uncomplicated; Z92.21 Personal history of antineoplastic chemotherapy; I27.2 Other secondary pulmonary hypertension; Z79.02 Long term (current) use of antithrombotics/antiplatelets; Z79.82 Long term (current) use of aspirin; Z79.899 Other long term (current) drug therapy; Z91.81 History of falling; Z92.3 Personal history of irradiation
CPT/HCPCS: 71010; 71020; 74174; 80048; 80053; 81001; 82040; 82550; 83036; 83735; 84100; 84439; 84443; 84484; 85025; 85610; 85730; 87086; 87641; 93005; 93306; 93880; 94010; 99285; J0696; J1650; J2270; Q9967

== ENCOUNTER 2017-08-02 07:25 | Inpatient (IN) | payer OTHER, MEDICARE, MEDICAID ==
[~2017-08-02] VITALS: Ht 157.5 cm; Wt 77.0 kg
[2017-08-02] VITALS (14 sets, daily range): BP systolic 145–189; BP diastolic 43–89; PULSE 42–65; RESP 16–20; TEMP 96–98.2; O2SAT 96–99
[~2017-08-02 07:25] MED LIST: ASPI81CH CHEW; BACL10TA PO; CARB25TA9 PO; CEFU1TAB20 PO; CLOP75TA PO; GABA800T PO; LEVO100T5 PO; METO50TA11 PO; OXYC1TAB63 PO; SERT-132 PO; SIMV20TA PO
[2017-08-02] MEDS ORDERED: ceFAZolin 2 GM PREMIX 50 ML IV SCH (07:45)
[2017-08-02] MEDS ORDERED: ASPIRIN 325 MG TAB PO SCH (07:45)
[2017-08-02] MEDS ORDERED: METOPROLOL TARTRATE 25 MG TAB PO PRN (08:00)
[2017-08-02] MEDS ORDERED: POVIDONE IODINE 5% (ANTISEPSIS KIT) 4 APPLICATIONS NASAL ONE (08:00)
[2017-08-02] MEDS ORDERED: CHLORHEXIDINE GLUCONATE 2 % 1 PACK (2 CLOTHS) TOPICAL PRN (08:00)
[2017-08-02] MEDS ORDERED: INSULIN HUMAN REGULAR 1,000 UNITS/10 ML VIAL SQ PRN (08:00)
[2017-08-02] MEDS ORDERED: CHLORHEXIDINE GLUCONATE 2 % 1 PACK (2 CLOTHS) TOPICAL ONE (08:00)
[2017-08-02] MEDS ORDERED: POVIDONE IODINE 5% (ANTISEPSIS KIT) 4 APPLICATIONS EACH NARE PRN (08:00)
[2017-08-02] MEDS ORDERED: SODIUM CHLORID 0.9% 500 ML IV PRN (08:00)
[2017-08-02] MEDS ORDERED: LACTATED RINGER'S 1000 ML IV PRN (08:00)
[2017-08-02] MEDS: SODIUM CHLOR 0.9% 1000 ML INJ 1,000 ML IV SCH ×3 (08:00→15:11)
[2017-08-02] MEDS ORDERED: PROP10TA6 PO (08:13)
[2017-08-02 09:00] LABS: AUTOMATED NEUTROPHIL # 4.8 TH/MM3 (1.8-7.7); BASOPHIL # 0.1 TH/MM3 (0-0.2); BASOPHIL % 0.7 % (0.0-2.0); EOSINOPHIL # 0.3 TH/MM3 (0-0.4); EOSINOPHIL % 3.3 % (0.0-4.0); HEMATOCRIT 35.7 % (35.0-46.0); HEMO FLAGS DIFF FINAL; LYMPHOCYTE # 1.9 TH/MM3 (1.0-4.8); MEAN CELL VOLUME 88.2 FL (80.0-100.0); MEAN CORPUSCULAR HEMOGLOBIN 29.4 PG (27.0-34.0); MEAN CORPUSCULAR HGB CONC 33.3 % (32.0-36.0); MONO % 9.9 % (0.0-8.0); NEUT % 62.1 % (16.0-70.0); PLATELET COUNT 301 TH/MM3 (150-450); RED BLOOD COUNT 4.05 MIL/MM3 (4.00-5.30); RED CELL DISTRIBUTION WIDTH 15.1 % (11.6-17.2); WHITE BLOOD COUNT 7.7 TH/MM3 (4.0-11.0)
[2017-08-02] MEDS: MUPIROCIN 2% OINT 1 APPLIC/GM SYR NASAL SCH ×2 (09:00→21:00)
[2017-08-02 09:09] LABS: APTT (PATIENT) 33.6 SEC (24.3-30.1); PROTHROMBIN TIME - PATIENT 11.2 SEC (9.8-11.6)
[2017-08-02] MEDS ORDERED: PROTAMINE SULFATE 50 MG/5 ML VIAL ONE (09:16)
[2017-08-02] MEDS ORDERED: NOREPINEPHRINE 4 MG/4 ML AMP ONE (09:16)
[2017-08-02] MEDS ORDERED: HEPARIN SODIUM - SQ 10,000 UNITS/ML VIAL ONE (09:16)
[2017-08-02 09:21] LABS: BICARBONATE 29.9 MEQ/L (21.0-32.0); POTASSIUM 3.9 MEQ/L (3.5-5.1)
[2017-08-02] MEDS ORDERED: CUSTODIOL HTK IRR SOLN 0 ML ONE (09:30)
[2017-08-02] MEDS ORDERED: SODIUM CHLOR 0.9% 1000 ML INJ 1,000 ML IV SCH (12:12)
--- NOTE | 2017-08-02 12:14 | PD.OP ---
cc: Clifford Damico MD; Nat Alexis MD; Leandro Dillon MD Operative Report Date of Surgery: Aug 02, 2017 Preoperative Diagnosis: (1) Critical aortic valve stenosis (2) Acute on chronic diastolic heart failure Postoperative Diagnosis: same Procedure: Transcatheter aortic valve replacement with a 23 Janak 3 tissue valve Balloon aortic valvuloplasty with a 18 True balloon Right femoral artery percutaneous access with Perclose closure Left femoral artery and vein percutaneous access with Perclose closure of the artery Diagnostic fluoroscopy Aortography Anesthesia: Dr. Cueva Surgeon: Nat Alexis Paint Mixer Machine(s): Co-surgeon - Dr. Lauren Cabrera. Dr. Valiente and Dr. Dillon Operation and Findings: The risks, benefits, complications, treatment options, and expected outcomes were discussed with the patient. The possibilities of reaction to medication, pulmonary aspiration, perforation of viscus, bleeding, recurrent infection, the need for additional procedures, failure to diagnose a condition, and creating a complication requiring transfusion or operation were discussed with the patient. The patient concurred with the proposed plan, giving informed consent. The site of surgery properly noted/marked. The patient was taken to the hybrid operating room, identified as Marichuy Llanes and the procedure verified as Transcatheter Aortic Valve Replacement. A Time Out was held and the above information confirmed. Standard monitoring lines and Montero catheter were placed. General anesthesia was induced. The patient was prepped and draped in a sterile fashion. Initially, left femoral arterial and venous access was acquired using a Seldinger percutaneous technique. The details of this procedure were dictated under separate note by cardiology. Once a pigtail was positioned in the aortic annulus and a temporary transvenous pacemaker wire was placed in the right ventricular apex and tested, the right femoral artery was accessed using a needle followed by a guidewire under fluoroscopic guidance. Serial dilators were used to dilate the right femoral artery to 14 Peruvian caliber. The Hensley sheath was then inserted abdominal aorta. Arch aortography was performed to define the implant view. A balloon aortic valvuloplasty was then performed using an 18 x 4 True balloon with the patient being paced at 160 beats per minute. A 23 Hensley Janak 3 transcatheter aortic valve was then positioned in the annulus and deployed with the patient being paced at 160 beats per minute. Following deployment, the valve apparatus was withdrawn and arch aortography and HERMAN were performed to assess the valve. The valve had no significant perivalvular leaks. The sheath was withdrawn under direct vision and removed. Protamine was administered. Hemostasis was obtained with Perclose sutures secured. The left femoral artery was closed with a Perclose device as well. Sterile dressings were placed. At the end of the operation, all sponge, instruments, and needle counts were correct. The patient was transferred to the CVICU in stable condition. Findings: heavily calcified aortic valve replaced with 23 Janak 3 tissue valve. Tiny PVL at conclusion of procedure Implants: 23 Janak 3 tissue valve Complications: none Disposition: to CVICU in stable condition Nat Alexis MD Aug 02, 2017 12:14
[2017-08-02] MEDS ORDERED: GLUCAGON 1 MG/ML VIAL OTHER PRN (12:15)
[2017-08-02] MEDS ORDERED: MISC INFORMATION OTHER ONE (12:15)
[2017-08-02] MEDS ORDERED: DEXTROSE 50% IN WATER 50 ML VIAL(D50) IV PRN (12:15)
--- NOTE | 2017-08-02 13:42 | PD.CAR.PN ---
CVT Progress Note Subjective/Hospital Course: 77/ F known aortic stenosis, recent syncopal episode , underwent echo which showed valve area 0.5cm2, mean gradient 54mmHg . Underwent cardiac cath by Dr Saturnino Cyr in [place] , normal left ventricular systolic function, acute on chronic diastolic HF, no angiographically epicardial disease , C.O 6.4/ Presented then to Dr Aguilar for eval for TAVR PMH: critical aortic stenosis , Breast CA 2006 ( chemo / radiation) tremors , hypothyroidism , HTN, HLP. non obstructive CAD on ASA, plavix at home, tobacco abuse surgery: 08/02 Transcatheter aortic valve replacement with a 23 [place] 3 tissue valve Balloon aortic valvuloplasty with a 18 True balloon Right femoral artery percutaneous access with Perclose closure Left femoral artery and vein percutaneous access with Perclose closure of the artery Objective: Vital Signs Date Time Temp Pulse Resp B/P (MAP) Pulse Ox O2 Delivery O2 Flow Rate FiO2 08/02/17 13:09 55 08/02/17 13:07 96.0 55 18 189/55 (99) 98 08/02/17 08:04 98.2 55 20 147/51 (83) 96 Labs: Laboratory Tests Test 08/02/17 08:05 White Blood Count 7.7 TH/MM3 (4.0-11.0) Red Blood Count 4.05 MIL/MM3 (4.00-5.30) Hemoglobin 11.9 GM/DL (11.6-15.3) Hematocrit 35.7 % (35.0-46.0) Mean Corpuscular Volume 88.2 FL (80.0-100.0) Mean Corpuscular Hemoglobin 29.4 PG (27.0-34.0) Mean Corpuscular Hemoglobin Concent 33.3 % (32.0-36.0) Red Cell Distribution Width 15.1 % (11.6-17.2) Platelet Count 301 TH/MM3 (150-450) Mean Platelet Volume 8.2 FL (7.0-11.0) Neutrophils (%) (Auto) 62.1 % (16.0-70.0) Lymphocytes (%) (Auto) 24.0 % (9.0-44.0) Monocytes (%) (Auto) 9.9 % (0.0-8.0) Eosinophils (%) (Auto) 3.3 % (0.0-4.0) Basophils (%) (Auto) 0.7 % (0.0-2.0) Neutrophils # (Auto) 4.8 TH/MM3 (1.8-7.7) Lymphocytes # (Auto) 1.9 TH/MM3 (1.0-4.8) Monocytes # (Auto) 0.8 TH/MM3 (0-0.9) Eosinophils # (Auto) 0.3 TH/MM3 (0-0.4) Basophils # (Auto) 0.1 TH/MM3 (0-0.2) CBC Comment DIFF FINAL Differential Comment Prothrombin Time 11.2 SEC (9.8-11.6) Prothromb Time International Ratio 1.0 RATIO Activated Partial Thromboplast Time 33.6 SEC (24.3-30.1) Blood Urea Nitrogen 11 MG/DL (7-18) Creatinine 0.82 MG/DL (0.50-1.00) Random Glucose 96 MG/DL (74-106) Calcium Level 8.6 MG/DL (8.5-10.1) Sodium Level 139 MEQ/L (136-145) Potassium Level 3.9 MEQ/L (3.5-5.1) Chloride Level 103 MEQ/L (98-107) Carbon Dioxide Level 29.9 MEQ/L (21.0-32.0) Anion Gap 6 MEQ/L (5-15) Estimat Glomerular Filtration Rate 68 ML/MIN (>89) Result Diagram: 08/02/1780408/02/17804 Shelly Aguillon Aug 02, 2017 13:41
--- NOTE | 2017-08-02 13:53 | MB ---
cc: ZAN MCGINNIS DATE OF H&P: 08/02/2017. REASON FOR ADMISSION: Elective percutaneous aortic valve replacement. HISTORY OF PRESENT ILLNESS: 77-year-old female referred by Dr. Cyr with severe symptomatic aortic stenosis and the [place] [employer] class IV symptoms. The patient was recently admitted for syncope where she was found to have severe aortic stenosis. She has a past medical history significant for breast cancer in 2006, tremors, hypothyroidism, hypertension, hyperlipidemia, smoker, fibromyalgia. Echocardiogram revealed aortic general velocity of 5.2, a mean gradient of 57mmHg, a calculated valve area of 0.49, and an ejection fraction of 50%. Coronary angiogram showed nonobstructive coronary artery disease. Subsequently the patient was referred to [facility] for further management and evaluation. The patient was seen by two cardiothoracic surgeons who deemed her intermediate risk for AVR, conventional AVR given her STS score of 3.2 and frailty of 4/4. She is presenting today for TAVR. REVIEW OF SYSTEMS: Negative except for that mentioned in the history of present illness. SOCIAL HISTORY: She denies illicit drug use and alcohol. She is an active smoker. FAMILY HISTORY: Noncontributory. HOME MEDICATIONS: Reviewed. PHYSICAL EXAMINATION: VITAL SIGNS: Temperature 97, respiratory rate 20, heart rate 70, blood pressure 140/90, 02 saturation is 100% RA. GENERAL: She is awake, alert and oriented times three in no acute distress. NECK: No jugular venous distention. No carotid bruits. HEART: Regular rate and rhythm. There is a 3/6 systolic ejection murmur. LUNGS: Clear to auscultation bilaterally. No wheezes, rales or rhonchi. ABDOMEN: Benign. EXTREMITIES: No cyanosis or edema. Pulses throughout. DATA: CBC: Hemoglobin 12, hematocrit 36, platelet count 271,000. Creatinine 0.7. Calculated STS score is 3.2. Frailty 4/5. Pulmonary function tests show some mild restrictive lung disease. EKG shows sinus rhythm with left ventricular hypertrophy and nonspecific S-T changes. Echocardiogram shows aortic jet velocity of 5.2, mean gradient of 80, calculated valve area of 0.49, ejection fraction 50%. Coronary angiogram - normal coronary arteries without any significant obstructive coronary artery disease. TAVR CTA shows a short annular diameter of 20, a long annulus diameter of 25 and annular area of 418.5, a sinus of Valsalva diameter of 28.4, STJ of 24, left coronary height of 10, right coronary height of 17. There is mild calcification of the LVOT. Iliac assessment shows a minimal luminal diameter on the right of 6.2 and a minimal luminal diameter on the left of 5.8. ASSESSMENT AND PLAN: 77-year-old female presenting today for elective transfemoral TAVR in the setting of acute on chronic diastolic heart failure, syncope and severe symptomatic aortic stenosis. The risks and benefits of transfemoral TAVR including but not limited to neurovascular trauma, permanent pacemaker insertion , bleeding, acute kidney injury, infection, stroke, emergent open heart surgery and have been explained to the patient. The patient understands the risks and she is willing to proceed. PLAN: 1. Right transfemoral access. 2. 23-mm S3 valve. MD IGOR Erazo/RUPESH /7:08 AM /1:26 PM MTDNorbert
[2017-08-02] MEDS: CARBIDOPA/LEVODOPA 25 MG/100 MG TAB PO SCH ×2 (15:00→21:49)
[2017-08-02] MEDS: ACETAMINOPHEN 325 MG TAB PO PRN (15:13)
[2017-08-02] MEDS: INSULIN NovoLIN REGULAR SUPPLEMENTAL SCALE SQ SCH ×2 (17:00→21:00)
[2017-08-02] MEDS ORDERED: BUPIVACAINE HCL PF 0.25% 30 ML VIAL ONE (17:15)
--- NOTE | 2017-08-02 18:21 | PD.PROCEDR ---
Procedure Note Procedure Procedure: Transesophageal Echocardiography Diagnosis: Severe aortic stenosis Indications: Need for perioperative planning for transcutaneous aortic valve replacement Consent: Obtained Anesthesia: General endotracheal anesthesia Description of the Procedure: The patient was sedated and mechanically ventilated. The echo probe was inserted easily and without resistance. At the conclusion of the procedure, the echo probe was removed. Please see detailed echocardiogram report for formal findings. Preliminary Findings (not confirmed): Pre-procedure: 1) Severe aortic stenosis 2) Normal biventricular function 3) mild aortic regurgitation 4) trace mitral regurgitation 5) evidence of [id number] intra-atrial shunting by color flow doppler 6) no pericardial effusion Post-balloon angioplasty: 1) significant increase in the amount of aortic regurgitation Post-procedure: 1) Successful placement of bioprosthetic aortic valve 2) trace/trivial perivalvular leak 3) no evidence of bioprosthetic valve stenosis 4) trace Mitral regurgitation 5) no regional wall motion abnormalities 6) normal RV function 7) no pericardial effusion The patient tolerated the procedure well with no hemodynamic instability or hypoxia. There were no immediate complications noted. I personally performed the procedure. Sb Torres MD Aug 02, 2017 18:21
--- NOTE | 2017-08-02 18:35 | PD.CONS ---
[facility] Service Critical Care Medicine Consult Requested By Dr. Aguilar Reason for Consult Management of comorbid conditions Primary Care Physician Lucian Castillo M.D. History of Present Illness This is a 77-year-old female with a history of symptomatic aortic stenosis, hypertension, hyperlipidemia, fibromyalgia, tobacco abuse. She presents for elective transcutaneous aortic valve replacement. She underwent uncomplicated TAVR with groin access. She presents to the CVICU in stable condition recently extubated. The patient is arousing from anesthesia and unable to provide additional history or complete review of systems. Review of Systems ROS Limitations: Clinical Condition ROS Arousing from anesthesia Past Family Social History Allergies: Coded Allergies: No Known Allergies (Unverified , 08/02/17) Past Medical History Breast cancer in 2005 Tremors Hypothyroidism Hypertension Hyperlipidemia Smoker Febrile myalgia Past Surgical History none Reported Medications Propranolol (Propranolol HCl) 10 Mg Tab 10 Mg PO Q12HR Oxycodone-Acetaminophen 5-325 mg Tab 1 Tab PO Q8HR PRN Gabapentin 800 Mg Tab 800 Mg PO TID Aspirin 81 Mg Chew 81 Mg CHEW DAILY Metoprolol Succinate ER 24 HR (Metoprolol Succinate) 50 Mg Tab 50 Mg PO DAILY Sertraline (Sertraline HCl) 50 Mg Tab 50 Mg PO DAILY Levothyroxine (Levothyroxine Sodium) 100 Mcg Tab 100 Mcg PO DAILY Baclofen 10 Mg Tab 10 Mg PO TID Simvastatin 20 Mg Tab 20 Mg PO DAILY Carbidopa-Levodopa 25-100 Mg Tab 1 Tab PO Q8HR Clopidogrel (Clopidogrel Bisulfate) 75 Mg Tab 75 Mg PO DAILY Active Ordered Medications See MAR Family History Reviewed in chart and found to be noncontributory to her acute illness Social History Active smoker. Denies alcohol. Physical Exam Vital Signs Vital Signs Date Time Temp Pulse Resp B/P (MAP) Pulse Ox O2 Delivery O2 Flow Rate FiO2 08/02/17 18:02 52 08/02/17 17:07 55 08/02/17 16:58 18 08/02/17 16:04 47 08/02/17 15:10 96.9 48 18 158/44 (82) 99 08/02/17 15:07 48 08/02/17 15:06 48 08/02/17 14:06 42 08/02/17 13:09 55 08/02/17 13:07 96.0 55 18 189/55 (99) 98 08/02/17 08:04 98.2 55 20 147/51 (83) 96 Physical Exam GENERAL: Frail elderly female, lying in bed, arousing from anesthesia, somnolent but arousable HEENT: Normocephalic. Atraumatic. Pupils equal, round, reactive, conjugate. Mucous membranes are moist NECK: Trachea is midline. There is no JVD. 2 central venous catheters exited the right neck, dressings intact, no hematoma, site appears clean and dry. CHEST: Unlabored. Equal chest rise. Nasal cannula oxygen CARDIOVASCULAR: Bradycardic rate, regular rhythm. Sinus by telemetry. Backup V paced, not currently paced. ABDOMEN: Soft, nontender, nondistended. No guarding. MUSCULOSKELETAL: Pulses 2+. No peripheral edema. Bilateral groin sites clean and dry. No evidence of hematoma. Positive dopplerable pulses. NEUROLOGICAL: RASS -2. Arousing from anesthesia. Moves all extremity's. Nonfocal. Follows commands. Laboratory Laboratory Tests Test 08/02/17 08:05 White Blood Count 7.7 Red Blood Count 4.05 Hemoglobin 11.9 Hematocrit 35.7 Mean Corpuscular Volume 88.2 Mean Corpuscular Hemoglobin 29.4 Mean Corpuscular Hemoglobin Concent 33.3 Red Cell Distribution Width 15.1 Platelet Count 301 Mean Platelet Volume 8.2 Neutrophils (%) (Auto) 62.1 Lymphocytes (%) (Auto) 24.0 Monocytes (%) (Auto) 9.9 Eosinophils (%) (Auto) 3.3 Basophils (%) (Auto) 0.7 Neutrophils # (Auto) 4.8 Lymphocytes # (Auto) 1.9 Monocytes # (Auto) 0.8 Eosinophils # (Auto) 0.3 Basophils # (Auto) 0.1 CBC Comment DIFF FINAL Differential Comment Prothrombin Time 11.2 Prothromb Time International Ratio 1.0 Activated Partial Thromboplast Time 33.6 Blood Urea Nitrogen 11 Creatinine 0.82 Random Glucose 96 Calcium Level 8.6 Sodium Level 139 Potassium Level 3.9 Chloride Level 103 Carbon Dioxide Level 29.9 Anion Gap 6 Estimat Glomerular Filtration Rate 68 Result Diagram: 08/02/1780408/02/17804 Assessment and Plan Assessment and Plan Assessment: 77yF POD 0 s/p TAVR with groin access, uncomplicated. Observe in CVICU overnight. Will restart home meds when appropriate. goal SBP < 180. advance diet. 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 - hold percocets - hold baclofen Critical Care medicine will continue to follow patient as long as she remains in the CVICU. Discussed Condition With Dr. Aguilar, Dr. Alexis, Dr. Dillon, bedside RN Sb Torres MD Aug 02, 2017 18:34
[2017-08-02] MEDS: GABAPENTIN 300 MG CAP PO SCH (18:45)
--- NOTE | 2017-08-02 20:40 | MB ---
cc: KRISTI CROCKER M.D. DATE OF CONSULTATION 08/02/2017 REASON FOR CONSULTATION AV block HISTORY OF PRESENT ILLNESS Mrs. Llanes is a 77-year-old female with a history of high blood pressure, hyperlipidemia, chronic smoker, hypertension, aortic stenosis, status post TAVR. During procedure, heart rate decreased. Episode of AV block observed. A temporary pacemaker was inserted and backup at this point at around 50 beats per minute. The patient in sinus rhythm. I was consulted for evaluation and management. The chart was reviewed. The patient was evaluated. ALLERGIES None. SOCIAL HISTORY The patient still smokes. FAMILY HISTORY Noncontributory to her current medical condition. MEDICATIONS At home, the patient is on: 1. Propranolol 2. Neurontin 3. Aspirin 4. Metoprolol 5. Sertraline 6. Levoxyl 7. Baclofen 8. Carbidopa levodopa 9. Plavix 10. Zocor 11. During hospitalization, Ancef was given. REVIEW OF SYSTEMS Patient currently refers no chest pain, no chest discomfort, feeling better. No vomiting. No fever. PHYSICAL EXAM Alert, fully oriented. VITAL SIGNS: Her blood pressure 152/43, pulse currently around 50, respiratory rate 18. LUNGS: Ventilated. CARDIOVASCULAR: S1, S2, no gallop. No murmur. ABDOMEN: Soft. No mass. No bruit. EXTREMITIES: No edema. Electrocardiogram earlier today indicated sinus rhythm, interventricular conduction delay, poor R-wave progression, diffuse ST changes. LABORATORY DATA Hemoglobin is 11.9, white blood cell 7.7, potassium 3.9, creatinine 0.82, INR 1.0. ASSESSMENT AND RECOMMENDATIONS Mrs. Llanes is currently stable. She is in bed, alert, fully oriented. She is on no beta kaushik. Telemetry showed a heart rate of around 50-55 beats per minute. There is intermittent RV pacing. At this point, my recommendation is observation. I am going to decrease the pacer back to about 40 beats per minute. The patient will be observed. If significant bradycardia observed, then pacing support may be considered. For now, continue with current management. MD YORDAN Olson/UZMA /6:45 PM 8:26 PM
--- NOTE | 2017-08-02 21:08 | EKG ---
Date Performed: 08/02/2017 Time Performed: 08:21:50 PTAGE: 77 years EKG: Sinus bradycardia with sinus arrhythmia Inferior/lateral ST-T changes are nonspecific Borde rline ECG PREVIOUS TRACING : 07/20/2017 00.40 Compared to prior tracing no significant change DOCTOR: Kale Sabillon Interpretating Date/Time 08/02/2017 21:08:03
[2017-08-03] VITALS (10 sets, daily range): BP systolic 124–159; BP diastolic 39–59; PULSE 53–65; RESP 16–18; TEMP 97.8–98.2; O2SAT 95–97
[2017-08-03 05:05] LABS: HEMATOCRIT 32.1 % (35.0-46.0); MEAN CELL VOLUME 88.3 FL (80.0-100.0); MEAN CORPUSCULAR HEMOGLOBIN 28.7 PG (27.0-34.0); MEAN CORPUSCULAR HGB CONC 32.6 % (32.0-36.0); PLATELET COUNT 238 TH/MM3 (150-450); RED BLOOD COUNT 3.63 MIL/MM3 (4.00-5.30); RED CELL DISTRIBUTION WIDTH 15.5 % (11.6-17.2); REVIEW FLAG FINAL; WHITE BLOOD COUNT 9.3 TH/MM3 (4.0-11.0)
[2017-08-03] MEDS: ACETAMINOPHEN 325 MG TAB PO PRN ×2 (05:07→10:58)
[2017-08-03 05:18] LABS: ANION GAP 4 MEQ/L (5-15); AST (GOT) 18 U/L (15-37); BICARBONATE 30.6 MEQ/L (21.0-32.0); BLOOD UREA NITROGEN 9 MG/DL (7-18); CHLORIDE 104 MEQ/L (98-107); GLOMERULAR FILTRATION RATE 82 ML/MIN (>89); POTASSIUM 4.1 MEQ/L (3.5-5.1); SODIUM (NA) 139 MEQ/L (136-145)
[2017-08-03 05:19] LABS: ALT (GPT) LESS THAN 6 U/L (10-53)
[2017-08-03 05:21] LABS: ALKALINE PHOSPHATASE 60 U/L (45-117); TOTAL BILIRUBIN ADULT 0.4 MG/DL (0.2-1.0)
[2017-08-03] MEDS ORDERED: LEVOTHYROXINE SODIUM 100 MCG TAB PO SCH (06:00)
[2017-08-03] MEDS: CARBIDOPA/LEVODOPA 25 MG/100 MG TAB PO SCH ×2 (06:21→13:08)
--- NOTE | 2017-08-03 07:42 | PD.CARD.PN ---
Subjective Subjective Remarks no CV complaints no overnight events Objective Medications Current Medications Medications (Trade) Dose Ordered Sig/Nazario Route Start Time Stop Time Status Last Admin Sodium Chloride 1,000 ml @ 125 mls/hr Q8H IV 08/02/17 08:00 08/02/17 12:30 Cefazolin Sodium/ Dextrose 50 ml @ 100 mls/hr DISASTER DIRECTOR IV 08/02/17 07:45 08/05/17 07:44 08/02/17 10:20 (Bactroban Nasal 2% Oint) 1 applic BID NASAL 08/02/17 09:00 Lactated Ringer's 1,000 ml @ 30 mls/hr Q24H PRN IV 08/02/17 08:00 08/05/17 07:59 Sodium Chloride 500 ml @ 30 mls/hr [id number] PRN IV 08/02/17 08:00 08/05/17 07:59 (Lopressor) 25 mg DISASTER DIRECTOR PRN PO 08/02/17 08:00 08/05/17 07:59 (Betadine 5% Antisepsis Kit) 1 applic DISASTER DIRECTOR PRN EACH NARE 08/02/17 08:00 08/05/17 07:59 08/02/17 08:22 (Chlorhexidine 2% Cloth) 3 pack DISASTER DIRECTOR PRN TOPICAL 08/02/17 08:00 08/05/17 07:59 08/02/17 08:22 (NovoLIN R INJ) See Protocol Table ... DISASTER DIRECTOR PRN SQ 08/02/17 08:00 08/05/17 07:59 (Tylenol) 650 mg Q4H PRN PO 08/02/17 12:15 08/03/17 12:14 08/03/17 05:07 (Aspirin Chew) 81 mg DAILY PO 08/03/17 09:00 (Plavix) 75 mg DAILY PO 08/03/17 09:00 (D50w (Vial) Inj) 50 ml UNSCH PRN IV 08/02/17 12:15 (Glucagon Inj) 1 mg UNSCH PRN OTHER 08/02/17 12:15 (NovoLIN R SUPPLEMENTAL SCALE) 1 ACHS SLIDING SCALE SQ 08/02/17 17:00 (Sinemet 25-100 Mg) 1 tab Q8HR PO 08/02/17 15:00 08/03/17 06:21 (Synthroid) 100 mcg DAILY@0600 PO 08/03/17 06:00 08/03/17 06:21 (Zoloft) 50 mg DAILY PO 08/03/17 09:00 (Pravachol) 40 mg DAILY PO 08/03/17 09:00 (Neurontin) 300 mg TID PO 08/02/17 18:45 (Neurontin) 300 mg TID PO 08/03/17 09:00 Vital Signs / I&O Vital Signs Date Time Temp Pulse Resp B/P (MAP) Pulse Ox O2 Delivery O2 Flow Rate FiO2 08/03/17 03:20 53 08/03/17 03:15 98.2 61 16 157/59 (91) 96 155/39 (77) 08/02/17 23:42 55 08/02/17 23:41 59 08/02/17 23:39 98.0 54 16 155/71 (99) 97 155/43 (80) 08/02/17 22:38 97 Nasal Cannula 2.00 08/02/17 20:31 50 08/02/17 19:30 97.9 65 16 145/89 (107) 97 155/46 (82) 08/02/17 19:30 97 Nasal Cannula 2.00 08/02/17 19:00 50 08/02/17 18:02 52 08/02/17 17:07 55 08/02/17 16:58 18 08/02/17 16:04 47 08/02/17 15:10 96.9 48 18 158/44 (82) 99 08/02/17 15:07 48 08/02/17 15:06 48 08/02/17 14:06 42 08/02/17 13:09 55 08/02/17 13:07 96.0 55 18 189/55 (99) 98 08/02/17 08:04 98.2 55 20 147/51 (83) 96 I/O 08/02/17 08/02/17 08/02/17 08/03/17 08/03/17 08/03/17 07:00 15:00 23:00 07:00 15:00 23:00 Intake Total 2000 ml 900 ml 240 ml Output Total 250 ml 650 ml 1100 ml Balance 1750 ml 250 ml -860 ml Intake Oral 400 ml 240 ml IV Total 500 ml 500 ml Other 1500 ml Output Urine Total 200 ml 650 ml 1100 ml Estimated Blood Loss 50 ml # Bowel Movements 0 1 Physical Exam GENERAL: Well-nourished, well-developed patient. SKIN: Warm and dry. HEAD: Normocephalic. EYES: No scleral icterus. No injection or drainage. NECK: Supple, trachea midline. No JVD or lymphadenopathy. CARDIOVASCULAR: Regular rate and rhythm without murmurs, gallops, or rubs. RESPIRATORY: Breath sounds equal bilaterally. No accessory muscle use. + rales GASTROINTESTINAL: Abdomen soft, non-tender, nondistended. EXTREMITIES: No cyanosis, or edema. NEUROLOGICAL: Awake, alert, and oriented x 3. Non-focal. Laboratory Laboratory Tests Test 08/02/17 08:05 08/03/17 04:30 White Blood Count 7.7 TH/MM3 9.3 TH/MM3 Red Blood Count 4.05 MIL/MM3 3.63 MIL/MM3 Hemoglobin 11.9 GM/DL 10.4 GM/DL Hematocrit 35.7 % 32.1 % Mean Corpuscular Volume 88.2 FL 88.3 FL Mean Corpuscular Hemoglobin 29.4 PG 28.7 PG Mean Corpuscular Hemoglobin Concent 33.3 % 32.6 % Red Cell Distribution Width 15.1 % 15.5 % Platelet Count 301 TH/MM3 238 TH/MM3 Mean Platelet Volume 8.2 FL 7.6 FL Neutrophils (%) (Auto) 62.1 % Lymphocytes (%) (Auto) 24.0 % Monocytes (%) (Auto) 9.9 % Eosinophils (%) (Auto) 3.3 % Basophils (%) (Auto) 0.7 % Neutrophils # (Auto) 4.8 TH/MM3 Lymphocytes # (Auto) 1.9 TH/MM3 Monocytes # (Auto) 0.8 TH/MM3 Eosinophils # (Auto) 0.3 TH/MM3 Basophils # (Auto) 0.1 TH/MM3 CBC Comment DIFF FINAL Differential Comment Prothrombin Time 11.2 SEC Prothromb Time International Ratio 1.0 RATIO Activated Partial Thromboplast Time 33.6 SEC Blood Urea Nitrogen 11 MG/DL 9 MG/DL Creatinine 0.82 MG/DL 0.69 MG/DL Random Glucose 96 MG/DL 95 MG/DL Calcium Level 8.6 MG/DL 8.7 MG/DL Sodium Level 139 MEQ/L 139 MEQ/L Potassium Level 3.9 MEQ/L 4.1 MEQ/L Chloride Level 103 MEQ/L 104 MEQ/L Carbon Dioxide Level 29.9 MEQ/L 30.6 MEQ/L Anion Gap 6 MEQ/L 4 MEQ/L Estimat Glomerular Filtration Rate 68 ML/MIN 82 ML/MIN Total Protein 6.3 GM/DL Albumin 2.9 GM/DL Alkaline Phosphatase 60 U/L Aspartate Amino Transf (AST/SGOT) 18 U/L Alanine Aminotransferase (ALT/SGPT) LESS THAN 6 U/L Total Bilirubin 0.4 MG/DL Assessment and Plan Problem List: (1) Critical aortic valve stenosis ICD Codes: I35.0 - Nonrheumatic aortic (valve) stenosis Status: Acute Plan: 77 y/o F s/p Right TF 23mm S3 TAVR. No overnight events, no CV complaints. Ambulating without difficulty. Bradycardia after induction for general anesthesia. No pauses or tachy-bradyarrhythmias on Telemetry on 2 beta blockers at home. Evaluated by EP. Will d/c TPM today. Acute on chronic diastolic heart failure on exam. Plan: 1. Lasix 20mg IV 2. D/C TPM 3. Tx to [facility]IC 4. Cont Telemetry 5. OT/PT 6. Encourage incentive spirometry and ambulation 7. 2Decho today 8. Cont DAPT with ASA and Plavix (2) Hyperlipidemia ICD Codes: E78.5 - Hyperlipidemia, unspecified (3) Parkinsons disease ICD Codes: G20 - Parkinson's disease (4) Neuropathy ICD Codes: G62.9 - Polyneuropathy, unspecified (5) Chronic pain syndrome ICD Codes: G89.4 - Chronic pain syndrome Status: Chronic (6) HTN (hypertension) ICD Codes: I10 - Essential (primary) hypertension Status: Chronic (7) Acute on chronic diastolic heart failure ICD Codes: I50.33 - Acute on chronic diastolic (congestive) heart failure Status: Resolved Clifford Damico MD Aug 03, 2017 07:42
[2017-08-03] MEDS ORDERED: FUROSEMIDE 20 MG/2 ML VIAL IV PUSH ONE (07:45)
[2017-08-03] MEDS: SODIUM CHLOR 0.9% 1000 ML INJ 1,000 ML IV SCH ×2 (08:00)
[2017-08-03] MEDS: INSULIN NovoLIN REGULAR SUPPLEMENTAL SCALE SQ SCH ×2 (08:00→12:00)
[2017-08-03] MEDS: GABAPENTIN 300 MG CAP PO SCH ×3 (08:10→13:08)
[2017-08-03] MEDS: MUPIROCIN 2% OINT 1 APPLIC/GM SYR NASAL SCH (08:14)
--- NOTE | 2017-08-03 08:58 | PD.CAR.PN ---
CVT Progress Note Subjective/Hospital Course: 77/ F known aortic stenosis, recent syncopal episode , underwent echo which showed valve area 0.5cm2, mean gradient 54mmHg . Underwent cardiac cath by Dr Saturnino Cyr in [place] , normal left ventricular systolic function, acute on chronic diastolic HF, no angiographically epicardial disease , C.O 6.4/ Presented then to Dr Aguilar for eval for TAVR PMH: critical aortic stenosis , Breast CA 2006 ( chemo / radiation) tremors , hypothyroidism , HTN, HLP. non obstructive CAD on ASA, plavix at home, tobacco abuse surgery: 08/02 Transcatheter aortic valve replacement with a 23 Janak 3 tissue valve Balloon aortic valvuloplasty with a 18 True balloon Right femoral artery percutaneous access with Perclose closure Left femoral artery and vein percutaneous access with Perclose closure of the artery 08/03 pt doing well , up in chair on 2 liter nasal cannula received lasix IV for acute on chronic diastolic HF NSR, no further breadycardia stable to transfer to stepdown Objective: GENERAL: SKIN: Warm and dry. right IJ CVC dc, along with TPM, bilateral groin sites intact without hematoma HEAD: Normocephalic. EYES: No scleral icterus. No injection or drainage. NECK: Supple, trachea midline. No JVD or lymphadenopathy. CARDIOVASCULAR: Regular rate and rhythm without murmurs, gallops, or rubs. RESPIRATORY: Breath sounds equal bilaterally. No accessory muscle use. GASTROINTESTINAL: Abdomen soft, non-tender, nondistended. MUSCULOSKELETAL: No cyanosis, or edema. BACK: Nontender without obvious deformity. No CVA tenderness. Vital Signs Date Time Temp Pulse Resp B/P (MAP) Pulse Ox O2 Delivery O2 Flow Rate FiO2 08/03/17 08:00 55 08/03/17 08:00 97 Nasal Cannula 2.00 08/03/17 08:00 97.8 55 16 124/47 (72) 97 Arterial Line 08/03/17 03:20 53 08/03/17 03:15 98.2 61 16 157/59 (91) 96 155/39 (77) 08/02/17 23:42 55 08/02/17 23:41 59 08/02/17 23:39 98.0 54 16 155/71 (99) 97 155/43 (80) 08/02/17 22:38 97 Nasal Cannula 2.00 08/02/17 20:31 50 08/02/17 19:30 97.9 65 16 145/89 (107) 97 155/46 (82) 08/02/17 19:30 97 Nasal Cannula 2.00 08/02/17 19:00 50 08/02/17 18:02 52 08/02/17 17:07 55 08/02/17 16:58 18 08/02/17 16:04 47 08/02/17 15:10 96.9 48 18 158/44 (82) 99 08/02/17 15:07 48 08/02/17 15:06 48 08/02/17 14:06 42 08/02/17 13:09 55 08/02/17 13:07 96.0 55 18 189/55 (99) 98 Labs: Laboratory Tests Test 08/03/17 04:30 White Blood Count 9.3 TH/MM3 (4.0-11.0) Red Blood Count 3.63 MIL/MM3 (4.00-5.30) Hemoglobin 10.4 GM/DL (11.6-15.3) Hematocrit 32.1 % (35.0-46.0) Mean Corpuscular Volume 88.3 FL (80.0-100.0) Mean Corpuscular Hemoglobin 28.7 PG (27.0-34.0) Mean Corpuscular Hemoglobin Concent 32.6 % (32.0-36.0) Red Cell Distribution Width 15.5 % (11.6-17.2) Platelet Count 238 TH/MM3 (150-450) Mean Platelet Volume 7.6 FL (7.0-11.0) Blood Urea Nitrogen 9 MG/DL (7-18) Creatinine 0.69 MG/DL (0.50-1.00) Random Glucose 95 MG/DL (74-106) Total Protein 6.3 GM/DL (6.4-8.2) Albumin 2.9 GM/DL (3.4-5.0) Calcium Level 8.7 MG/DL (8.5-10.1) Alkaline Phosphatase 60 U/L (45-117) Aspartate Amino Transf (AST/SGOT) 18 U/L (15-37) Alanine Aminotransferase (ALT/SGPT) LESS THAN 6 U/L (10-53) Total Bilirubin 0.4 MG/DL (0.2-1.0) Sodium Level 139 MEQ/L (136-145) Potassium Level 4.1 MEQ/L (3.5-5.1) Chloride Level 104 MEQ/L (98-107) Carbon Dioxide Level 30.6 MEQ/L (21.0-32.0) Anion Gap 4 MEQ/L (5-15) Estimat Glomerular Filtration Rate 82 ML/MIN (>89) Result Diagram: 08/03/1742908/03/17429 (1) Critical aortic valve stenosis Plan: s/p Right TF 23mm S3 TAVR. up in chair initial bradycardia after induction of anesthesia resolved OT/PT/ ambulate will see prn , defer all further orders and notes to Dr Aguilar (2) Hyperlipidemia (3) Parkinsons disease (4) Neuropathy (5) Chronic pain syndrome (6) HTN (hypertension) (7) Acute on chronic diastolic heart failure Shelly Aguillon Aug 03, 2017 08:58
[2017-08-03] MEDS ORDERED: PRAVASTATIN SOD 40 MG TAB PO SCH (09:00)
[2017-08-03] MEDS ORDERED: SERTRALINE HCL 50 MG TAB PO SCH (09:00)
[2017-08-03] MEDS ORDERED: CLOPIDOGREL 75 MG TAB PO SCH ×2 (09:00)
[2017-08-03] MEDS ORDERED: ASPIRIN 81 MG CHEW TAB PO SCH (09:00)
[2017-08-03] MEDS ORDERED: ASPIRIN 81 MG CHEW TAB CHEW SCH (09:00)
--- NOTE | 2017-08-03 12:03 | HHI.PR ---
Subjective Remarks Feeling ok Objective Vital Signs Date Time Temp Pulse Resp B/P (MAP) Pulse Ox O2 Delivery O2 Flow Rate FiO2 08/03/17 10:10 65 08/03/17 09:16 64 08/03/17 08:00 55 08/03/17 08:00 97 Nasal Cannula 2.00 08/03/17 08:00 97.8 55 16 124/47 (72) 97 Arterial Line 08/03/17 03:20 53 08/03/17 03:15 98.2 61 16 157/59 (91) 96 155/39 (77) 08/02/17 23:42 55 08/02/17 23:41 59 08/02/17 23:39 98.0 54 16 155/71 (99) 97 155/43 (80) 08/02/17 22:38 97 Nasal Cannula 2.00 08/02/17 20:31 50 08/02/17 19:30 97.9 65 16 145/89 (107) 97 155/46 (82) 08/02/17 19:30 97 Nasal Cannula 2.00 08/02/17 19:00 50 08/02/17 18:02 52 08/02/17 17:07 55 08/02/17 16:58 18 08/02/17 16:04 47 08/02/17 15:10 96.9 48 18 158/44 (82) 99 08/02/17 15:07 48 08/02/17 15:06 48 08/02/17 14:06 42 08/02/17 13:09 55 08/02/17 13:07 96.0 55 18 189/55 (99) 98 I/O 08/02/17 08/02/17 08/02/17 08/03/17 08/03/17 08/03/17 06:59 14:59 22:59 06:59 14:59 22:59 Intake Total 2000 ml 900 ml 240 ml Output Total 250 ml 650 ml 1100 ml Balance 1750 ml 250 ml -860 ml Intake Oral 400 ml 240 ml IV Total 500 ml 500 ml Other 1500 ml Output Urine Total 200 ml 650 ml 1100 ml Estimated Blood Loss 50 ml # Bowel Movements 0 1 Result Diagram: 08/03/17 0430 08/03/17 0430 Imaging Alert, fully oriented, in bed Lungs: ventilated Heart: S1, S2 regular, no gallop Abdomen: soft, no mass Ext: no edema Current Medications Medications (Trade) Dose Ordered Sig/Nazario Route Start Time Stop Time Status Last Admin Sodium Chloride 1,000 ml @ 125 mls/hr Q8H IV 08/02/17 08:00 08/02/17 12:30 Cefazolin Sodium/ Dextrose 50 ml @ 100 mls/hr [employer] IV 08/02/17 07:45 08/05/17 07:44 08/02/17 10:20 (Bactroban Nasal 2% Oint) 1 applic BID NASAL 08/02/17 09:00 08/03/17 08:14 Lactated Ringer's 1,000 ml @ 30 mls/hr Q24H PRN IV 08/02/17 08:00 08/05/17 07:59 Sodium Chloride 500 ml @ 30 mls/hr [id number] PRN IV 08/02/17 08:00 08/05/17 07:59 (Lopressor) 25 mg [employer] PRN PO 08/02/17 08:00 08/05/17 07:59 (Betadine 5% Antisepsis Kit) 1 applic [employer] PRN EACH NARE 08/02/17 08:00 08/05/17 07:59 08/02/17 08:22 (Chlorhexidine 2% Cloth) 3 pack [employer] PRN TOPICAL 08/02/17 08:00 08/05/17 07:59 08/02/17 08:22 (NovoLIN R INJ) See Protocol Table ... [employer] PRN SQ 08/02/17 08:00 08/05/17 07:59 (Tylenol) 650 mg Q4H PRN PO 08/02/17 12:15 08/03/17 12:14 08/03/17 10:58 (Aspirin Chew) 81 mg DAILY PO 08/03/17 09:00 08/03/17 08:13 (Plavix) 75 mg DAILY PO 08/03/17 09:00 08/03/17 08:13 (D50w (Vial) Inj) 50 ml UNSCH PRN IV 08/02/17 12:15 (Glucagon Inj) 1 mg UNSCH PRN OTHER 08/02/17 12:15 (NovoLIN R SUPPLEMENTAL SCALE) 1 ACHS SLIDING SCALE SQ 08/02/17 17:00 (Sinemet 25-100 Mg) 1 tab Q8HR PO 08/02/17 15:00 08/03/17 06:21 (Synthroid) 100 mcg DAILY@0600 PO 08/03/17 06:00 08/03/17 06:21 (Zoloft) 50 mg DAILY PO 08/03/17 09:00 08/03/17 08:13 (Pravachol) 40 mg DAILY PO 08/03/17 09:00 08/03/17 08:14 (Neurontin) 300 mg TID PO 08/03/17 09:00 08/03/17 08:13 Assessment and Plan Problem List: (1) Bradycardia ICD Codes: R00.1 - Bradycardia, unspecified Plan: In sinus rhythm. No pacing since yesterday Case discussed with Dr Aguilar. Temporary pacer removed Ok for propanolol. (2) HTN (hypertension) ICD Codes: I10 - Essential (primary) hypertension Status: Chronic Plan: SBP 124 (3) Critical aortic valve stenosis ICD Codes: I35.0 - Nonrheumatic aortic (valve) stenosis Status: Acute Plan: SP Michael Andersen MD Aug 03, 2017 12:03
--- NOTE | 2017-08-03 14:33 | EKG ---
Date Performed: 08/03/2017 Time Performed: 06:17:48 PTAGE: 77 years EKG: Sinus rhythm . Possible anterior infarct - age undetermined Inferior/lateral ST-T changes are nonspecific Compared to prior tracing no significant change Abnormal ECG PREVIOUS TRACING : 08/02/2017 08.21 DOCTOR: Harry Gray Interpretating Date/Time 08/03/2017 14:32:22
--- NOTE | 2017-08-03 14:55 | HHI.DS ---
Discharge Summary Admission Date Aug 02, 2017 at 07:25 Discharge Date: Aug 03, 2017 Admitting Diagnosis (1) Critical aortic valve stenosis Diagnosis: Principal ICD Codes: I35.0 - Nonrheumatic aortic (valve) stenosis Status: Acute (2) Bradycardia ICD Codes: R00.1 - Bradycardia, unspecified (3) Acute on chronic diastolic heart failure ICD Codes: I50.33 - Acute on chronic diastolic (congestive) heart failure Status: Resolved (4) HTN (hypertension) ICD Codes: I10 - Essential (primary) hypertension Status: Chronic (5) Chronic pain syndrome ICD Codes: G89.4 - Chronic pain syndrome Status: Chronic (6) Hyperlipidemia ICD Codes: E78.5 - Hyperlipidemia, unspecified (7) Generalized weakness ICD Codes: R53.1 - Weakness Procedures Right TF TAVR Brief History 77 y/o F with severe symptomatic and chronic diastolic HF admitted for TAVR CBC/BMP: 08/03/17 0430 08/03/17 0430 Significant Findings Laboratory Tests Test 08/02/17 08:05 08/03/17 04:30 Monocytes (%) (Auto) 9.9 % (0.0-8.0) Activated Partial Thromboplast Time 33.6 SEC (24.3-30.1) Estimat Glomerular Filtration Rate 68 ML/MIN (>89) 82 ML/MIN (>89) Red Blood Count 3.63 MIL/MM3 (4.00-5.30) Hemoglobin 10.4 GM/DL (11.6-15.3) Hematocrit 32.1 % (35.0-46.0) Total Protein 6.3 GM/DL (6.4-8.2) Albumin 2.9 GM/DL (3.4-5.0) Alanine Aminotransferase (ALT/SGPT) LESS THAN 6 U/L (10-53) Anion Gap 4 MEQ/L (5-15) PE at Discharge GENERAL: Well-nourished, well-developed patient. SKIN: Warm and dry. HEAD: Normocephalic. EYES: No scleral icterus. No injection or drainage. NECK: Supple, trachea midline. No JVD or lymphadenopathy. CARDIOVASCULAR: Regular rate and rhythm without murmurs, gallops, or rubs. RESPIRATORY: Breath sounds equal bilaterally. No accessory muscle use. GASTROINTESTINAL: Abdomen soft, non-tender, nondistended. EXTREMITIES: No cyanosis, or edema. NEUROLOGICAL: Awake, alert, and oriented x 3. Non-focal. Hospital Course Ms. Llanes underwent successful placement of a 23mmS3 Janak Valve thru the right TF approach. No intraoperative complications. Acute on chronic diastolic heart failure requiring IV lasix POD#1. Routine EP evaluation, no PPM needed. She is stable to be discharge home today. Follow up with Dr. Aguilar in 30 days. Discharge Disposition: Discharge Home Discharge Instructions DIET: Follow Instructions for: Heart Healthy Diet Speech Therapy-Diet Recommenda: Regular Activities you can perform: Weight Bearing as Domitila Continued Medications: Aspirin (Aspirin) 81 Mg Chew 81 MG CHEW DAILY, TAB 0 Refills Baclofen (Baclofen) 10 Mg Tab 10 MG PO TID for Muscle Spasm, TAB 0 Refills Carbidopa-Levodopa (Carbidopa-Levodopa) 25-100 Mg Tab 1 TAB PO Q8HR for Parkinson Disease Mgmt, #90 TAB 0 Refills Clopidogrel (Clopidogrel) 75 Mg Tab 75 MG PO DAILY for Blood Clot Prevention, #30 TAB 0 Refills Gabapentin (Gabapentin) 800 Mg Tab 800 MG PO TID, #90 TAB 0 Refills Levothyroxine (Levothyroxine) 100 Mcg Tab 100 MCG PO DAILY for Thyroid, #30 TAB 0 Refills Oxycodone-Acetaminophen (Oxycodone-Acetaminophen) 5-325 mg Tab 1 TAB PO Q8HR PRN for PAIN, TAB 0 Refills Sertraline (Sertraline) 50 Mg Tab 50 MG PO DAILY, #30 TAB 0 Refills Simvastatin (Simvastatin) 20 Mg Tab 20 MG PO DAILY for Cholesterol Management, #30 TAB 0 Refills Discontinued Medications: Metoprolol Succinate ER 24 HR (Metoprolol Succinate ER 24 HR) 50 Mg Tab 50 MG PO DAILY, #30 TAB 0 Refills Propranolol (Propranolol) 10 Mg Tab 10 MG PO Q12HR, #60 TAB 0 Refills Clifford Damico MD Aug 03, 2017 14:55
--- NOTE | 2017-08-03 15:38 | ECHRPT ---
Indication: ASSESS TAVR CONCLUSIONS The left ventricular systolic function is hyperdynamic with an estimated ejection fraction in the ra nge of 65- 70%. Normal left ventricular size. Wall thickness is normal. No regional wall motion abnormalities are present. Mild thickening of the mitral valve leaflets. The aortic valve prosthesis is normal to two-dimensional, color flow and Doppler interrogation. There is mild tricuspid valve regurgitation. The estimated pulmonary arterial pressure is 40 mmHg. BP: 134 / 58 HR: 64 Rhythm: Sinus MEASUREMENTS (Male / Female) Normal Values Technical Quality:Good 2D ECHO LV Diastolic Diameter PLAX 4.7 cm 4.2 - 5.9 / 3.9 - 5.3 cm LV Systolic Diameter PLAX 2.9 cm IVS Diastolic Thickness 1.1 cm 0.6 - 1.0 / 0.6 - 0.9 cm LVPW Diastolic Thickness 1.1 cm 0.6 - 1.0 / 0.6 - 0.9 cm LV Relative Wall Thickness 0.5 RV Internal Dim ED PLAX 2.5 cm LVOT Diameter 1.9 cm LA Systolic Diameter LX 3.9 cm 3.0 - 4.0 / 2.7 - 3.8 cm LV Ejection Fraction MOD 4C 68.4 % LV Cardiac Index MOD 4C 2305.6 cm/minm LV Ejection Fraction 4C AL 69.2 % LV Cardiac Index 4C AL 2424.1 cm/minm M-MODE Aortic Root Diameter MM 1.8 cm LA Systolic Diameter MM 3.9 cm LA Ao Ratio MM 2.1 AV Cusp Separation MM 1.3 cm DOPPLER AV Peak Velocity 383.5 cm/s AV Peak Gradient 58.8 mmHg AV Mean Gradient 31.0 mmHg AV Velocity Time Integral 89.3 cm LVOT Peak Velocity 205.0 cm/s LVOT Peak Gradient 16.8 mmHg LVOT Velocity Time Integral 48.8 cm LVOT Cardiac Index 4761.4 cm/minm AV Area Cont Eq vti 1.6 cm AV Area Cont Eq pk 1.5 cm MV Area PHT 2.4 cm Mitral E Point Velocity 115.0 cm/s Mitral A Point Velocity 111.0 cm/s Mitral E to A Ratio 1.0 LV E' Lateral Velocity 5.8 cm/s Mitral E to LV E' Lateral Ratio 20.0 LV E' Septal Velocity 5.6 cm/s Mitral E to LV E' Septal Ratio 20.7 TR Peak Velocity 273.0 cm/s TR Peak Gradient 29.8 mmHg PV Peak Velocity 70.6 cm/s PV Peak Gradient 2.0 mmHg FINDINGS LEFT VENTRICLE The left ventricular systolic function is hyperdynamic with an estimated ejection fraction in the ra nge of 65- 70%. Normal left ventricular size. Wall thickness is normal. No regional wall motion abnormalities are present. RIGHT VENTRICLE Normal right ventricular size and systolic function. LEFT ATRIUM The left atrial size is normal. RIGHT ATRIUM The right atrial size is normal. ATRIAL SEPTUM Normal atrial septal thickness without atrial level shunting by limited color doppler interrogation. AORTA The aortic root and proximal ascending aorta are normal in size on limited imaging. MITRAL VALVE Mild thickening of the mitral valve leaflets. AORTIC VALVE The aortic valve prosthesis is normal to two-dimensional, color flow and Doppler interrogation. TRICUSPID VALVE There is mild tricuspid valve regurgitation. The estimated pulmonary arterial pressure is 40 mmHg. PULMONARY VALVE The pulmonary valve is not well visualized. VESSELS The inferior vena cava is normal in size. PERICARDIUM No pericardial effusion. Clifford Damico MD (Electronically Signed) Final Date:03 August 2017 15:38
--- NOTE | 2017-08-04 12:21 | MA ---
cc: ZAN MCGINNIS DATE August 02, 2017 DATE OF 1940 PREOPERATIVE DIAGNOSIS Severe aortic stenosis with calculated valve area of 0.4, mean gradient of 57, peak velocity of 5.7. Symptoms, shortness of breath, fatigue, chest pain and syncope. Hypertension, Hyperlipidemia, Parkinson's disease, Fibromyalgia. POSTOPERATIVE DIAGNOSIS Severe aortic stenosis with calculated valve area of 0.4, mean gradient of 57 and peak velocity of 5.7. Symptoms, shortness of breath, fatigue, chest pain and syncope. Hypertension, Hyperlipidemia, Parkinson's disease, Fibromyalgia. OPERATIVE PROCEDURE 1. Right transfemoral transaortic valve replacement with a 23-mm S3 Aortic Janak valve. 2. Balloon aortic valvuloplasty with a 18 mm True Balloon. 3. Aortic root angiogram. 4. Placement of a pigtail catheter for angiography. 5. Temporary pacemaker insertion. 6. Perclose left common femoral arteries. ANESTHESIA Dr. Wilson SURGEONS Dr. Nat Alexis, Dr. 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 Leandro Dillon ECHO SUPPORT Dr. Ady Torres INDICATION 77-year-old female with severe symptomatic aortic stenosis with progressive symptom of heart failure, fatigue and syncope. The patient has been evaluated for aortic valve replacement and the patient was felt to be high risk for conventional aortic valve replacement by Dr. Valiente and Dr. Alexis, on the basis of frailty, STS score and comorbidities. She has been evaluated and accepted after extensive review of patient's chart for TAVR. The risks of the procedure have been discussed with the patient at length and consent has been signed to proceed as planned. TECHNIQUE The patient was under general anesthesia a transesophageal echocardiogram probe was placed and used throughout the procedure to evaluate aortic valve position and position of our catheters. Intraoperative HERMAN demonstrated severe, 0.65 area of the aortic stenosis. The left femoral artery and vein regions were entered percutaneously and a 6-[place] sheath was inserted into the left common femoral artery and a 5-[place] sheath was inserted into the left common femoral vein, the left arterial sheath, then a 5-[place] pigtail catheter was advanced over a J-wire around the arch of the aorta and aortic angiography was performed in order to get multiple views of deployment of the Janak valve. The valve access site was accessed with a micropuncture, angiography was performed through the micropuncture sheath to confirm position of the sheath. After that an 8-[place] sheath was inserted into the right common femoral artery, this was followed by preclosing the artery with three Perclose and a Supra Core 0.35 wire was advanced into the ascending aorta followed by dilating the common femoral artery with a 10-[place] dilator followed by introduction of the 14-[place] Hensley valve sheath. The patient was fully heparinized with ACT checked. Then we used an AL-1 over a straight stiff Amplatz wire the aortic valve wa cross with the tip left in the left ventricular chamber. This was followed by insertion of a 6-[place] angled pigtail and reshaping the Amplatz wire into the ventricle. The pigtail was removal and an 18 mm True Balloon was introduced for balloon aortic valvuloplasty with rapid pacing. After BAB was performed we inserted a 23 mm S3 aortic valve plus 2 cc. The balloon was mounted into the valve in the ascending aorta and then advanced across the aortic valve using the pigtail, fluoroscopy as well as HERMAN to confirm position. After confirmation of position the valve it was successfully deployed by balloon inflation during rapid pacing. Post deployment there were no signs of perivalvular leaks, aortic regurgitation, tamponade or wall motion abnormalities on the HERMAN. The patient tolerated the procedure well without complication. The catheters were removed with pullback of the delivery system of the valve, then delivery sheath was removed from the right femoral artery and then it was Perclosed. Finally, the pigtail was removed and then the sheath of the left side were removed, pressure held, removed, it was closed with a Perclose with a Mynx device. This concluded the operation. Postoperative transesophageal echocardiogram demonstrated adequate function of the aortic bioprosthesis. The aortic valve area postprocedure was 1.7. The mean gradient was 7 and the maximal aortic valve velocity was 2.0. There was no aortic insufficiency or perivalvular leaks. COMPLICATIONS None. DISPOSITION The patient will be admitted to the CIC unit in stable condition with post cath care. She will be continued on dual antiplatelet agent with aspirin and Plavix. Early extubation. Temporary pacemaker will remain in place for the next 24 hours. Will continue telemetry monitoring. EP consult today after bed rest. The patient will be in 4 hours of bedrest, after bedrest see if she would be able to get out of bed today and tomorrow will consult PT, OT. MD IGOR Erazo/HERVE /4:34 PM /12:06 PM MTD
== END 2017-08-03 15:32 | disposition home or self-care (01) | DRG 266 ==
LOC: HDIC 07:25 → HCVR 12:35 → HCIN 08-03 09:00
PROVIDERS: ADMIT Radiology Vascular & Interventional Radiology; ATTEND Radiology Vascular & Interventional Radiology
PROC: 02R Heart and Great Vessels, Replacement (ICD-10-PCS; principal; 2017-08-02 09:58)
PROC: 02HK3NZ Insertion of Intracardiac Pacemaker into Right Ventricle, Percutaneous Approach (ICD-10-PCS; 2017-08-02 09:58)
PROC: B24BZZ4 Ultrasonography of Heart with Aorta, Transesophageal (ICD-10-PCS; 2017-08-02 09:58)
DX: I35.0 Nonrheumatic aortic (valve) stenosis (principal); I50.33 Acute on chronic diastolic (congestive) heart failure; G20 Parkinson's disease; G62.9 Polyneuropathy, unspecified; Z00.6 Encounter for examination for normal comparison and control in clinical research program; I11.0 Hypertensive heart disease with heart failure; E03.9 Hypothyroidism, unspecified; E78.5 Hyperlipidemia, unspecified; G89.4 Chronic pain syndrome; I25.10 Atherosclerotic heart disease of native coronary artery without angina pectoris; M79.7 Fibromyalgia; I44.30 Unspecified atrioventricular block; Z85.3 Personal history of malignant neoplasm of breast; F17.200 Nicotine dependence, unspecified, uncomplicated; F32.9 Major depressive disorder, single episode, unspecified
CPT/HCPCS: 33210; 33361; 80048; 80053; 82948; 85002; 85025; 85027; 85610; 85730; 86850; 86900; 86901; 86920; 92986; 93005; 93308; C1760; C1769; C1893; G0269; J0690; J1644; J1940; J2720; J7030